=== PATIENT | male | born 1950 | race Caucasian/White ===

== ENCOUNTER → 2018-01-25 10:00 | Outpatient (CLI) | payer MEDICARE, MEDICAID, SELFPAY | PROVIDERS: PCP Family Medicine; Visit Provider Student in an Organized Health Care Education/Training Program | DX: I25.10 Atherosclerotic heart disease of native coronary artery without angina pectoris (principal); I50.9 Heart failure, unspecified; I11.0 Hypertensive heart disease with heart failure; Z95.818 Presence of other cardiac implants and grafts; I71.4 Abdominal aortic aneurysm, without rupture; I72.3 Aneurysm of iliac artery | CPT/HCPCS: 99214 ==

== ENCOUNTER 2022-09-23 11:21 | Outpatient (CLI) | payer MEDICARE, SELFPAY ==
--- NOTE | 2022-09-23 10:48 | DI.RAD_ITS ---
Exam(s) XR CHEST 2V PA LATERAL EXAM: XR CHEST 2V PA LATERAL CLINICAL HISTORY: COUGH R05.8 SEVERAL DAYS WORSE LAYING DOWN ? PNEUMONIA VS HEART FAILURE. TECHNIQUE: 2D digital imaging was performed. COMPARISON: CT CTA THORAX/ABDOMEN/PELVIS from 05/14/2017 FINDINGS: 2 views: Heart size is normal. The mediastinum is not widened. Bilateral hyperinflation. There is blunting of the right costophrenic angle indicating small right-s ided pleural. Mild increased markings in both lung bases. No airspace pulmonary edema. IMPRESSION: Mild increased markings both lung bases. Also small right pleural effusion. Wet read performed DATA REPOSITORY: RADIATION DOSE DELIVERED:
[2022-09-23 14:12] LABS: Source Nasal/Nares
[2022-09-23 14:15] LABS: Abs Immature Grans 0.04 10^3/uL (0.0-0.06); Absolute Basophil Count 0.08 10^3/uL (0.0-0.2); Absolute Eosinophil Count 0.17 10^3/uL (0.0-0.7); Absolute Lymphocyte Count 1.62 10^3/uL (1.2-3.4); Absolute Monocyte Count 0.66 10^3/uL (0.1-0.8); Basophils % 0.7; Eosinophils % 1.4; HCT 37.8 % (40.0-50.0); HGB 12.9 g/dL (13.5-17.5); Immature Grans % 0.3; Lymphocytes % 13.4; MCH 30.8 pg (27.0-33.0); MCHC 34.1 % (32.0-36.0); MCV 90 fL (80-95); MPV 10.8 fL (8.0-11.0); Monocytes % 5.5; Neutrophils % 78.7; Platelet Count 259 10^3/uL (130-400); RBC 4.19 10^6/uL (4.36-5.78); RDW 14.4 % (11.8-14.1); RDW-SD 47.8 fL; WBC 12.07 10^3/uL (4.4-10.8)
[2022-09-23 14:34] LABS: ALT 14 U/L (16-63); AST 11 U/L (15-37); Albumin 3.8 g/dL (3.4-5.0); Alkaline Phosphatase 111 U/L (46-116); BUN 27 mg/dL (7-18); Bilirubin, Total 0.6 mg/dL (0.2-1.0); CREATININE 1.6 mg/dL (0.70-1.30); Calcium 8.9 mg/dL (8.5-10.1); Chloride 101 mmol/L (98-107); Estimated GFR 46.06 (mL/min/1.73m2); Glucose 316 mg/dL (74-106); NT-proBNP 19382 pg/mL (<300); Potassium 3.8 mmol/L (3.5-5.1); Sodium 136 mmol/L (136-145); Total Protein 6.8 g/dL (6.4-8.2)
[2022-09-23 14:46] LABS: COVID-19 PCR Negative (Negative)
== END 2022-09-23 11:41 ==
LOC: DI 11:22
PROVIDERS: PCP Family Medicine; Visit Provider Physician Assistant Medical
DX: R05.8 Other specified cough (principal); J90 Pleural effusion, not elsewhere classified; J98.4 Other disorders of lung; I50.9 Heart failure, unspecified; Z20.822 Contact with and (suspected) exposure to COVID-19
CPT/HCPCS: 80053; 87635; 71046; 83880; 85025

== ENCOUNTER 2022-09-23 16:05 | Inpatient (IN) | payer MEDICARE, SELFPAY ==
[2022-09-23] VITALS (49 sets, daily range): BP systolic 137–192; BP diastolic 75–125; PULSE 81–96; RESP 12–28; TEMP 36.4–36.9; O2SAT 94–99
--- NOTE | 2022-09-23 16:15 | RT.EKG_ITS ---
APPROVED REPORT Exam: Resting ECG Reason for Exam: sob, cardiac hx Patient Location: E HR:93 bpm ECG Measurements Heart Rate 93 AXIS NC 141 P 41 QRSd 80 QRS 50 QT 375 T 37 QTc 466 Conclusion Sinus rhythm...normal P axis, V-rate 60- 99 Left atrial enlargement...P, P'>60mS, <-0.15mV V1 Anterior infarct, old...Q >40mS, abnormal ST-T, V2-V5. Sinus. Normal axis. LVH. No STEMI. I have reviewed and interpreted ECG and agree with software generated interpretation.
[2022-09-23 16:50] LABS: Abs Immature Grans 0.05 10^3/uL (0.0-0.06); Absolute Basophil Count 0.07 10^3/uL (0.0-0.2); Absolute Monocyte Count 0.75 10^3/uL (0.1-0.8); Basophils % 0.6; Eosinophils % 1.1; HCT 37.7 % (40.0-50.0); HGB 13.1 g/dL (13.5-17.5); Immature Grans % 0.4; Lymphocytes % 9.7; MCH 31.2 pg (27.0-33.0); MCHC 34.7 % (32.0-36.0); MCV 90 fL (80-95); MPV 10.5 fL (8.0-11.0); Monocytes % 6.1; Neutrophils % 82.1; Platelet Count 244 10^3/uL (130-400); RDW 14.4 % (11.8-14.1); RDW-SD 47.5 fL; WBC 12.35 10^3/uL (4.4-10.8)
[2022-09-23 16:51] LABS: Absolute Eosinophil Count 0.14 10^3/uL (0.0-0.7); Absolute Neutrophil Count 10.14 10^3/uL (1.2-6.7)
[2022-09-23 17:07] LABS: ALT 14 U/L (16-63); AST 11 U/L (15-37); Albumin 3.6 g/dL (3.4-5.0); Alkaline Phosphatase 109 U/L (46-116); Anion Gap 8.5 mmol/L (3-11); BUN 27 mg/dL (7-18); Bilirubin, Total 0.6 mg/dL (0.2-1.0); CO2 25.5 mmol/L (21.0-32.0); CREATININE 1.6 mg/dL (0.70-1.30); Calcium 8.9 mg/dL (8.5-10.1); Chloride 103 mmol/L (98-107); Estimated GFR 46.06 (mL/min/1.73m2); Glucose 315 mg/dL (74-106); Magnesium 1.9 mg/dL (1.8-2.4); Potassium 3.9 mmol/L (3.5-5.1); Sodium 137 mmol/L (136-145)
[2022-09-23 17:09] LABS: Troponin I 166 ng/L (<or=60)
[2022-09-23 17:12] LABS: NT-proBNP 22305 pg/mL (<300)
--- NOTE | 2022-09-23 17:12 | DI.RAD_ITS ---
Exam(s) XR CHEST 2V PA LATERAL EXAM: XR CHEST 2V PA LATERAL CLINICAL HISTORY: sob, r/o acute disease TECHNIQUE: 2D digital imaging was performed of the chest. Two images were obtained. PA and lateral views were obtained. COMPARISON: Comparison is made with prior examinations. FINDINGS: MEDIASTINUM: Normal. HEART: Normal. PULMONARY VASCULATURE: There is ectasia of the ascending thoracic aorta. There does appear to be mil d prominence of the pulmonary vasculature which may represent pulmonary edema. LUNGS: The lungs are hyperinflated consistent with underlying COPD. No focal consolidating infiltrat es are seen. PLEURAL SPACE: There is blunting of the costophrenic angles bilaterally again seen. This may represe nt small effusions versus scarring. No pneumothorax. BONE:Within normal limits for the patient's age. OTHER FINDINGS:Normal. IMPRESSION: 1. Prominence of the pulmonary vasculature which may represent pulmonary edema. 2. Small pleural effusions versus pleural scarring. 3. No focal consolidating infiltrates. DATA REPOSITORY: RADIATION DOSE DELIVERED:
--- NOTE | 2022-09-23 17:23 | DI.VRAD_ITS ---
PROCEDURE INFORMATION: Exam: XR Chest Exam date and time: 09/23/2022 5:11 PM Age: 72 years old Clinical indication: Other: SOB, R/O acute disease TECHNIQUE: Imaging protocol: Radiologic exam of the chest. Views: 2 views. COMPARISON: CR XR CHEST 2V PA LATERAL 09/23/2022 10:47 AM FINDINGS: Lungs: The lung volumes are increased. Since this morning's examination there is increase in the pulmonary vascularity consistent with mild pulmonary edema. No lobar consolidations. Pleural spaces: Tiny-small bilateral subpulmonic pleural effusions. Heart/Mediastinum: Heart is normal in size and configuration. Vasculature: The lateral image shows ectasia of the ascending aorta that was seen by CTA May 14, 2017 when it measured 4.1 cm in diameter. Bones/joints: Unremarkable. IMPRESSION: 1. Tiny-small bilateral pleural effusions with pulmonary edema. 2. Ectasia of the ascending aorta. Dictated and Authenticated by: Antonio Oconnor MD. Ordering:EDILBERTO Diez MD
--- NOTE | 2022-09-23 18:16 | ED.GENADUL_ITS ---
Discharge Plan Disposition Patient Disposition: Admit to [facility] Condition: Serious Discharge Details Chief Complaint: RespSymp Clinical Impression: Acute CHF, Hypertensive urgency, Elevated troponin, Noncompliance with medication regimen Primary Care Provider: Lavelle Webber ED Provider: Chary Valero Home Meds and New Rx's Prescriptions: No Action glipizide 5 mg tablet 5 mg PO DAILY omeprazole 20 mg capsule,delayed release(DR/EC) 20 mg PO DAILY Qty: 60 3RF nitroglycerin [Nitrostat] 0.4 MG tablet, sublingual 0.4 mg Sublingual PRN atorvastatin 80 MG tablet 80 mg PO DAILY Qty: 90 3RF metoprolol tartrate 50 MG tablet 50 mg PO BID Qty: 180 3RF aspirin 81 MG tablet,chewable 81 mg PO DAILY Qty: 90 3RF lisinopril 20 MG tablet 20 mg PO DAILY Qty: 90 3RF (DME) blood-glucose meter 1 EACH misc 1 ea Miscellaneous DAILY Qty: 1 0RF Rx Instructions: METER TYPE (whichever covered)_ DIAGNOSIS CODE E11.9 (DME) blood sugar diagnostic [Blood Glucose Test] 1 EACH strip 1 ea Miscellaneous DAILY Qty: 1 11RF Rx Instructions: Dx: E11.9 (DME) lancets 1 EACH misc 1 ea Miscellaneous DAILY Qty: 100 12RF Rx Instructions: FOR METER. NO INSULIN. DIAGNOSIS CODE E11.9 Medical Decision Making 72-year-old male with a history of coronary artery disease, triple bypass, coronary stent placement and diabetes who has not taken any of his medications for 6+ years with a complaint of progressive dyspnea on exertion and fatigue for the past few days presents after sent by [facility] when noted to have an elevated BNP of 19,000 and bilateral pleural effusions on chest x-ray as an outpatient today. Blood pressure on arrival 176/106. Patient appears chronically ill but in no acute respiratory distress. His oxygen saturations 98% on room air. He has diminished breath sounds throughout. Screening labs obtained on arrival and noted BNP of 22 305, increased from 19,000 today. Troponin 166. White blood cell count 12. Chest x-ray notes tiny bilateral pleural effusions with increase in vascularity consistent with mild pulmonary edema. Patient is not requiring any supplemental oxygen. BP now 187/113. Discussed with patient that he appears to be in acute CHF along with hypertensive urgency and recommend admission to the hospital for serial troponins, diuresis and blood pressure management. Patient is agreeable with plan. Case discussed with hospitalist who accepts patient for admission. Medical Records Medical records reviewed: Yes I reviewed the patient's medical records. Imaging Data Radiologic Study: Radiologist's impression: XR Chest Exam date and time: 09/23/2022 5:11 PM Age: 72 years old Clinical indication: Other: SOB, R/O acute disease TECHNIQUE: Imaging protocol: Radiologic exam of the chest. Views: 2 views. COMPARISON: CR XR CHEST 2V PA LATERAL 09/23/2022 10:47 AM FINDINGS: Lungs: The lung volumes are increased. Since this morning's examination there is increase in the pulmonary vascularity consistent with mild pulmonary edema. No lobar consolidations. Pleural spaces: Tiny-small bilateral subpulmonic pleural effusions. Heart/Mediastinum: Heart is normal in size and configuration. Vasculature: The lateral image shows ectasia of the ascending aorta that was seen by CTA May 14, 2017 when it measured 4.1 cm in diameter. Bones/joints: Unremarkable. IMPRESSION: 1. ? Tiny-small bilateral pleural effusions with pulmonary edema. 2. ? Ectasia of the ascending aorta. Lab Data Lab results reviewed: Yes I reviewed the patient's lab results. Labs: Laboratory Tests Range/Units 09/23/22 09/23/22 09/23/22 16:40 16:40 16:40 WBC (4.4-10.8) 10^3/uL 12.35 H RBC (4.36-5.78) 10^6/uL 4.20 L Hgb (13.5-17.5) g/dL 13.1 L Hct (40.0-50.0) % 37.7 L MCV (80-95) fL 90 MCH (27.0-33.0) pg 31.2 MCHC (32.0-36.0) % 34.7 RDW (11.8-14.1) % 14.4 H Plt Count (130-400) 10^3/uL 244 MPV (8.0-11.0) fL 10.5 Immature Gran % 0.4 Neutrophils % 82.1 Lymphocytes % 9.7 Monocytes % 6.1 Eosinophils % 1.1 Basophils % 0.6 Nucleated RBC % (0.0-0.3) % 0.0 Absolute Neutrophils (1.2-6.7) 10^3/uL 10.14 H Absolute Lymphocytes (1.2-3.4) 10^3/uL 1.20 Absolute Monocytes (0.1-0.8) 10^3/uL 0.75 Absolute Eosinophils (0.0-0.7) 10^3/uL 0.14 Absolute Basophils (0.0-0.2) 10^3/uL 0.07 Sodium (136-145) mmol/L 137 Potassium (3.5-5.1) mmol/L 3.9 Chloride (98-107) mmol/L 103 Carbon Dioxide (21.0-32.0) mmol/L 25.5 Anion Gap (3-11) mmol/L 8.5 BUN (7-18) mg/dL 27 H Creatinine (0.70-1.30) mg/dL 1.6 H Est GFR (CKD-EPI 2020) (mL/min/1.73m2) 46.06 Glucose (74-106) mg/dL 315 H Calcium (8.5-10.1) mg/dL 8.9 Magnesium (1.8-2.4) mg/dL 1.9 Total Bilirubin (0.2-1.0) mg/dL 0.6 AST (15-37) U/L 11 L ALT (16-63) U/L 14 L Alkaline Phosphatase (46-116) U/L 109 Troponin I (<or=60) ng/L 166 H* NT-Pro-B Natriuret Pep (<300) pg/mL 16235 H Total Protein (6.4-8.2) g/dL 7.0 Albumin (3.4-5.0) g/dL 3.6 ECG Data Attestation: I personally reviewed and interpreted this ECG (s) as follows: Interpretation: Rate of 93, sinus, normal axis, LVH, no STEMI. HPI General Mode of arrival: ambulatory . Date/Time Provider Initiated Documentation: 09/23/22 16:11 . Limitations to Documentation: no limitations . Information obtained by: patient . HPI Narrative: Patient is a 72 yo male with a history of coronary artery disease with triple bypass and coronary stent placement over 10 years ago, hypertension and diabetes who presents with a complaint of shortness of breath worse with activity over the past 3 days. He also admits to increasing productive cough. He states he stopped taking all of his medications over 6 years ago and has not seen a doctor since then. Son at bedside states that a retractor from surgery was left in hi s chest after his triple bypass and that made him mad so he states he decided to stop his medications. Patient was seen in [facility] care earlier today and had outpatient labs and x-ray which noted a BNP of 19,000 and a chest x-ray which noted bilateral pleural effusions and he was called at home and told to present here for evaluation. Patient denies any known fever, chest pain, abdominal pain. Related Data Home Medications Medication Instructions Recorded Confirmed nitroglycerin 0.4 mg sublingual 0.4 mg sublingual PRN 07/20/17 04/21/18 tablet (Nitrostat) aspirin 81 mg chewable tablet 81 mg PO DAILY #90 tab-caps 10/19/17 04/21/18 atorvastatin 80 mg tablet 80 mg PO DAILY #90 tab-caps 10/19/17 04/21/18 lisinopril 20 mg tablet 20 mg PO DAILY #90 tab-caps 10/19/17 04/21/18 metoprolol tartrate 50 mg tablet 50 mg PO BID #180 tab-caps 10/19/17 04/21/18 blood sugar diagnostic (Blood ##1 01/20/18 04/21/18 Glucose Test strips) blood-glucose meter #1 ea 01/20/18 04/21/18 lancets 28 gauge #100 ea 01/20/18 04/21/18 glipizide 5 mg tablet 5 mg PO DAILY 04/21/18 04/21/18 omeprazole 20 mg capsule,delayed 20 mg PO DAILY #60 caps 04/21/18 04/21/18 release Previous Rx's Medication Instructions Recorded aspirin 81 mg chewable tablet 81 mg PO DAILY #90 tab-caps 10/19/17 atorvastatin 80 mg tablet 80 mg PO DAILY #90 tab-caps 10/19/17 lisinopril 20 mg tablet 20 mg PO DAILY #90 tab-caps 10/19/17 metoprolol tartrate 50 mg tablet 50 mg PO BID #180 tab-caps 10/19/17 blood sugar diagnostic (Blood ##1 01/20/18 Glucose Test strips) blood-glucose meter #1 ea 08/03/18 lancets 28 gauge #100 ea 01/20/18 omeprazole 20 mg capsule,delayed 20 mg PO DAILY #60 caps 04/21/18 release Allergies Allergy/AdvReac Type Severity Reaction Status Date / Time No Known Allergies Allergy Verified 04/21/18 10:11 General Stated Complaint: RespSymp DENIS: 3 Review of Systems All systems reviewed & are unremarkable except as noted in HPI and below Constitutional Constitutional: Reports as per HPI, Denies chills, Reports fatigue, Denies fever(s) and Reports weakness Eyes Eyes: Denies blurry vision ENT Ears, Nose, Mouth, and Throat: Denies dizziness, Denies sore throat and Denies throat swelling Cardiovascular Cardiovascular: Denies chest pain and Reports dyspnea on exertion Respiratory Respiratory: Reports cough and Reports dyspnea on exertion Gastrointestinal Gastrointestinal: Denies abdominal pain, Denies diarrhea and Denies vomiting Genitourinary Genitourinary: Denies hematuria and Denies dysuria Musculoskeletal Musculoskeletal: Denies back pain and Denies numbness Integumentary/Breasts Skin/Breast: Denies lesions and Denies rash Neurologic Neurologic: Denies dizziness, Denies localized weakness, Denies numbness and Reports weakness Endocrine Endocrine: Reports fatigue Allergic/Immunologic Allergic/Immunologic: Denies throat swelling PFSH All Active Problems (Updated 09/23/22 @ 19:01 by Chary Valero DO) Acute CHF (Acute) Hypertensive urgency (Acute) Elevated troponin (Acute) Noncompliance with medication regimen (Acute) Diverticulosis of colon (Chronic) Abdominal pain, LLQ (Chronic) Epigastric abdominal pain of unknown etiology (Chronic) Medical History (Updated 09/23/22 @ 19:01 by Chary Valero DO) Coronary artery disease Diabetes Surgical History (Updated 09/23/22 @ 18:22 by Chary Valero DO) AAA repair (08/10/13) [facility] [place] Colonoscopy - MAC 11/13/13; LR F/U 7 YRS History of coronary artery stent placement S/P triple vessel bypass Social History Smoking/Tobacco Use Status: Former Tobacco Use Smoking risk assessment performed?: Yes Drug use: Never Do you feel safe in your relationship?: Yes Exam Const General: cooperative, no acute distress and ill appearing chronically Nutritional Appearance: thin Orientation: alert, awake and oriented x3 HENMT Head: normal to inspection Face and sinus: normal facial exam Mouth: moist mucous membranes Eyes General: appearance normal, both eyes and all related structures Pupils: PERRL EOM: EOM intact bilaterally Neck Neck: normal visual inspection and No submandibular swelling Lymphatic: no lymphadenopathy noted Chest Chest: normal inspection of the chest and no tenderness Resp Effort & Inspection: normal respiratory effort and able to speak in complete sentences Auscultation: diminished lung sounds bilaterally throughout Cardio Rate: regular rate Rhythm: regular rhythm GI Inspection: normal to inspection Palpation: soft, not firm, not rigid and nontender Auscultation: hypoactive bowel sounds Male General Exam: Yes normal external exam Back/Spine/Pelvis Thoracic/Lumbar Spine: thoracic and lumbar spine normal to inspection Pelvis: no pain with anterior-posterior compression Skin General skin exam: no rashes or lesions noted Neuro General: patient alert, patient awake and patient oriented x3 Cognition: normal cognition Speech: speech normal Motor: muscle tone normal throughout Sensory Exam: no sensory deficits noted Extrem General: normal to inspection, full ROM, capillary refill normal, no calf tenderness bilaterally and no edema Psych Appearance: grossly normal Mental Status: mental status grossly normal Speech and Movement: speech and movement normal Affect: normal affect Course Vital Signs Vital signs: Vital Signs Temperature 98.4 F 09/23/22 16:18 Pulse 96 H 09/23/22 16:18 Respiratory Rate 20 09/23/22 16:18 Blood Pressure 176/106 H 09/23/22 16:18 Pulse Oximetry 98 09/23/22 16:18 Temperature 98.4 F 09/23/22 16:18 Temperature Source Oral 09/23/22 16:18 Pulse 96 H 09/23/22 16:18 Respiratory Rate 20 09/23/22 16:18 Blood Pressure 176/106 H 09/23/22 16:18 Blood Pressure Position Sitting 09/23/22 16:18 Pulse Oximetry 98 09/23/22 16:18 Oxygen Delivery Method Room Air 09/23/22 16:18 Oxygen Flow Rate 0 09/23/22 16:18 Pain Level 0 09/23/22 16:18 Lab/Test Results Lab/Test Results: Laboratory Tests Range/Units 09/23/22 09/23/22 09/23/22 16:40 16:40 16:40 WBC (4.4-10.8) 10^3/uL 12.35 H RBC (4.36-5.78) 10^6/uL 4.20 L Hgb (13.5-17.5) g/dL 13.1 L Hct (40.0-50.0) % 37.7 L MCV (80-95) fL 90 MCH (27.0-33.0) pg 31.2 MCHC (32.0-36.0) % 34.7 RDW (11.8-14.1) % 14.4 H Plt Count (130-400) 10^3/uL 244 MPV (8.0-11.0) fL 10.5 Immature Gran % 0.4 Neutrophils % 82.1 Lymphocytes % 9.7 Monocytes % 6.1 Eosinophils % 1.1 Basophils % 0.6 Nucleated RBC % (0.0-0.3) % 0.0 Absolute Neutrophils (1.2-6.7) 10^3/uL 10.14 H Absolute Lymphocytes (1.2-3.4) 10^3/uL 1.20 Absolute Monocytes (0.1-0.8) 10^3/uL 0.75 Absolute Eosinophils (0.0-0.7) 10^3/uL 0.14 Absolute Basophils (0.0-0.2) 10^3/uL 0.07 Sodium (136-145) mmol/L 137 Potassium (3.5-5.1) mmol/L 3.9 Chloride (98-107) mmol/L 103 Carbon Dioxide (21.0-32.0) mmol/L 25.5 Anion Gap (3-11) mmol/L 8.5 BUN (7-18) mg/dL 27 H Creatinine (0.70-1.30) mg/dL 1.6 H Est GFR (CKD-EPI 2020) (mL/min/1.73m2) 46.06 Glucose (74-106) mg/dL 315 H Calcium (8.5-10.1) mg/dL 8.9 Magnesium (1.8-2.4) mg/dL 1.9 Total Bilirubin (0.2-1.0) mg/dL 0.6 AST (15-37) U/L 11 L ALT (16-63) U/L 14 L Alkaline Phosphatase (46-116) U/L 109 Troponin I (<or=60) ng/L 166 H* NT-Pro-B Natriuret Pep (<300) pg/mL 94161 H Total Protein (6.4-8.2) g/dL 7.0 Albumin (3.4-5.0) g/dL 3.6
[2022-09-23] MEDS: Furosemide 100 MG/10 ML VIAL 80 MG IVP (18:34)
[2022-09-23] MEDS: Metoprolol 5 MG/5 ML VIAL IVP (18:37)
[2022-09-23 19:16] LABS: Source Nasal/Nares
[2022-09-23 19:47] LABS: COVID-19 PCR Negative (Negative)
[2022-09-23 21:48] LABS: Troponin I 158 ng/L (<or=60)
[2022-09-23] MEDS: Enoxaparin 40 MG/0.4 ML SYR SC (22:10)
--- NOTE | 2022-09-23 22:46 | W.PM.HP.N ---
Date of service: 09/23/22 Time of Service: 22:46 Assessment and Plan Assessment and plan (1) Acute CHF: Status: Acute Assessment and plan: Exam and BNaP consistent with acute CHF, likely due to ischemic cardiomyopathy given his history. He is already responding to diuresis, will continue furosemide Order echo to assess LVEF and guide therapy (2) Hypertensive urgency: Status: Acute Assessment and plan: This is likely related to fluid overloaded status and him not taking his blood pressure medication. I will continue metoprolol IV overnight given elevated troponins, transition to oral tomorrow. CHF improving with metoprolol so I don't think it is making his CHF worse. Follow BPs with this and diuresis. Resume LESLIE inhibitor once we make sure creatinine is stable. (3) Elevated troponin: Status: Acute Assessment and plan: Elevated troponin but no chest pain or ischemic EKG changes. This is improving already with duresis and metoprolol. Not consistent with AC. (4) Type 2 diabetes mellitus without complications: Status: Suspected Assessment and plan: He has been off therapy, likely poorly controlled, has lost weight. Start with insulin, check A1c. He would benefit from metformin (if okay with GFR) and newer therapies given CAD and CHF (GLP-1 and SGLT2i). We need to know he can get these paid for as an outpatient, so holding off for now. (5) Coronary artery disease: Assessment and plan: Resume high intensity statin and ASA. (6) Smoker: Status: Acute Assessment and plan: Daily cigarillo smoker. He stopped with these symtoms but is contemplative about quitting for good. (7) Renal insufficiency: Status: Chronic Assessment and plan: Reviewing history it is unclear if this is purely chronic or acute on chronic. I think likely chronic progression of CKD off medication for HTN and DM. Follow. LESLIE-inh as above. (8) Anemia, mild: Status: Acute Assessment and plan: NO known blood loss. Possibly CKD related, normocytic. Consider iron/b12/folate (9) DVT prophylaxis: Status: Acute Assessment and plan: LMWH (10) Discharge planning issues: Status: Acute Assessment and plan: STable on the medical floor on telemetry given heart disease. He will need to re-establish with PCP upon discharge. History of Present Illness History of Present Illness Chief Complaint: short of breath Narrative: 72 year old male, daily cigar smoker, with a history of type 2 diabetes and coronary artery disease s/p CABG who has been off of his medications for years, presenting with 4 days of progressive shortness of breath that is worse on exertion. He first noted the dyspnea Tuesday when he woke up, 3 days prior to the day of admission. He did not have any chest pain and and can not think of any trigger for his symptoms. Since then he has dyspneic with any exertion like walking and he has had a hard time sleeping because of orthopnea. He hasn't had leg edema. He has had a cough productive of white frothy sputum. Since getting furosemide in the ED, he did urinate a lot and he is able to lay comfortably in bed at about 45%, which he couldn't do before. Review of Systems Constitutional Constitutional: Denies anorexia, Denies chills, Denies fever(s), Denies headache(s), Reports lethargy, Denies weakness and Reports weight loss Eyes Eyes: Denies change in vision and Denies irritation ENT Ears, Nose, Mouth, and Throat: Denies dizziness, Denies headache(s), Denies nasal congestion, Denies nasal discharge and Denies sore throat Cardiovascular Cardiovascular: Denies chest pain, Denies edema, Denies lightheadedness and Denies palpitations Respiratory Respiratory: Reports as per HPI and Denies wheezing Gastrointestinal Gastrointestinal: Denies abdominal pain, Denies constipation, Denies heartburn, Denies diarrhea, Denies nausea and Denies vomiting Genitourinary Genitourinary: Denies hematuria, Denies dysuria and Denies urinary incontinence Musculoskeletal Musculoskeletal: Reports muscle cramps (since being in hospital, right foot) Integumentary/Breasts Skin/Breast: Denies rash and Denies skin ulcer Comments: sore on right neck, has had it for years Neurologic Neurologic: Denies dizziness, Denies headache(s), Denies sensory deficit and Denies weakness Psychiatric Psychiatric: Denies mood swings and Denies panic attacks Endocrine Endocrine: Denies palpitations Hematologic/Lymphatic Hematologic/Lymphatic: Denies easy bleeding Allergic/Immunologic Allergic/Immunologic: Denies wheezing PFSH All Active Problems (Updated 09/23/22 @ 23:26 by Darrick Minor) Anemia, mild (Acute) Renal insufficiency (Chronic) Discharge planning issues (Acute) DVT prophylaxis (Acute) Smoker (Acute) Acute CHF (Acute) Hypertensive urgency (Acute) Elevated troponin (Acute) Noncompliance with medication regimen (Acute) Diverticulosis of colon (Chronic) Abdominal pain, LLQ (Chronic) Epigastric abdominal pain of unknown etiology (Chronic) Medical History Coronary artery disease Diabetes Surgical History AAA repair (08/10/13) [facility] [place] Colonoscopy - MAC 11/13/13; [facility] F/U 7 YRS History of coronary artery stent placement S/P triple vessel bypass Social History (Updated 09/23/22 @ 22:58 by Darrick Minor) Smoking/Tobacco Use Status: Former Tobacco Use Smoking risk assessment performed?: Yes Alcohol Intake: current Drug use: Never Do you feel safe in your relationship?: Yes Additional Social history: Lives along in [place]. 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 14 siblings. Meds Allergies and Home Medications Allergies Allergy/AdvReac Type Severity Reaction Status Date / Time No Known Allergies Allergy Verified 09/23/22 21:01 Home Medications Medication Instructions Recorded Confirmed Type nitroglycerin 0.4 mg sublingual 0.4 mg sublingual PRN 07/20/17 04/21/18 History tablet (Nitrostat) aspirin 81 mg chewable tablet 81 mg PO DAILY #90 tab-caps 10/19/17 04/21/18 Rx atorvastatin 80 mg tablet 80 mg PO DAILY #90 tab-caps 10/19/17 04/21/18 Rx lisinopril 20 mg tablet 20 mg PO DAILY #90 tab-caps 10/19/17 04/21/18 Rx metoprolol tartrate 50 mg tablet 50 mg PO BID #180 tab-caps 10/19/17 04/21/18 Rx blood sugar diagnostic (Blood ##1 01/20/18 04/21/18 Rx Glucose Test strips) blood-glucose meter #1 ea 01/20/18 04/21/18 Rx lancets 28 gauge #100 ea 01/20/18 04/21/18 Rx glipizide 5 mg tablet 5 mg PO DAILY 04/21/18 04/21/18 History omeprazole 20 mg capsule,delayed 20 mg PO DAILY #60 caps 04/21/18 04/21/18 Rx release Exam Narrative Exam Narrative: GEN: Alert and oriented, pleasant and cooperative, gives linear history. Thin. No acute distress at rest. HEENT: Head atraumatic. Conjunctiva clear, no icterus. PEERL, EOMI. no rhinorrhea. MMM, OP benign. Neck is supple with no masses or lymphadenopathy, trachea midline. JVP noted to 12cm H20 LUNGS: light rales 1/3 up lung field bilaterally, otherwise CTAB. speaks with full sentences at rest. CV: RRR with no murmurs, gallops, or rubs. ABD: +BS, soft, NT/ND EXT: no cyanosis, clubbing, or edema MSK: No joint redness or swelling NEURO: CN 2-12 grossly intact. Normal movement of 4 extremities. Normal speech and coordination SKIN: No rashes. 8mm excoriated round plaque with dry crusted blood right neck below ear PSYCH: normal mood and affect Results Imaging Chest x-ray: report reviewed and image reviewed (mild paul effusions, pulmonary edema) EKG: report reviewed and image reviewed (NSR, LVH, no STEMI) Labs 09/23/22 16:40 09/23/22 16:40 Labs: Laboratory Results - last 24 hr 09/23/22 09/23/22 09/23/22 16:40 16:40 16:40 WBC 12.35 H RBC 4.20 L Hgb 13.1 L Hct 37.7 L MCV 90 MCH 31.2 MCHC 34.7 RDW 14.4 H Plt Count 244 MPV 10.5 Immature Gran % 0.4 Neutrophils % 82.1 Lymphocytes % 9.7 Monocytes % 6.1 Eosinophils % 1.1 Basophils % 0.6 Nucleated RBC % 0.0 Absolute Neutrophils 10.14 H Absolute Lymphocytes 1.20 Absolute Monocytes 0.75 Absolute Eosinophils 0.14 Absolute Basophils 0.07 Sodium 137 Potassium 3.9 Chloride 103 Carbon Dioxide 25.5 Anion Gap 8.5 BUN 27 H Creatinine 1.6 H Est GFR (CKD-EPI 2020) 46.06 Glucose 315 H Calcium 8.9 Magnesium 1.9 Total Bilirubin 0.6 AST 11 L ALT 14 L Alkaline Phosphatase 109 Troponin I 166 H* NT-Pro-B Natriuret Pep 94927 H Total Protein 7.0 Albumin 3.6 COVID-19 Source SARS-CoV-2 (PCR) 09/23/22 09/23/22 19:15 21:14 WBC RBC Hgb Hct MCV MCH MCHC RDW Plt Count MPV Immature Gran % Neutrophils % Lymphocytes % Monocytes % Eosinophils % Basophils % Nucleated RBC % Absolute Neutrophils Absolute Lymphocytes Absolute Monocytes Absolute Eosinophils Absolute Basophils Sodium Potassium Chloride Carbon Dioxide Anion Gap BUN Creatinine Est GFR (CKD-EPI 2020) Glucose Calcium Magnesium Total Bilirubin AST ALT Alkaline Phosphatase Troponin I 158 H* NT-Pro-B Natriuret Pep Total Protein Albumin COVID-19 Source Nasal/Nares SARS-CoV-2 (PCR) Negative Last Vital Signs Temp 36.4 C L 09/23/22 21:22 Pulse 85 09/23/22 21:22 Resp 15 09/23/22 21:22 BP 183/100 H 09/23/22 21:22 Pulse Ox 97 09/23/22 21:22 Time Spent Time spent with Patient: 55-74 minutes Time was spent: preparing to see the patient(eg.review tests), obtaining and/or reviewing separately otained hiistory, ordering medications,tests, procedures, referring, communicating with other health laboratory animal caretaker, indepentently interpreting results and counseling the patient
[2022-09-23] MEDS: Insulin Glargine 300 UNITS/3 ML PEN 10 UNITS SC (23:04)
[2022-09-23 23:35] LABS: Troponin I 147 ng/L (<or=60)
[2022-09-24] VITALS (17 sets, daily range): BP systolic 124–190; BP diastolic 81–105; PULSE 65–94; RESP 14–20; TEMP 36–36.6; O2SAT 94–99
[2022-09-24] MEDS: Metoprolol 5 MG/5 ML VIAL IVP ×2 (00:43→05:39)
[2022-09-24] MEDS: Normal Saline Flush 10 ML SYR IVP ×4 (00:45→16:07)
[2022-09-24] MEDS: Acetaminophen 325 MG TAB PO (02:19)
[2022-09-24] MEDS: Potassium Chloride 20 MEQ TABCR PO (02:31)
[2022-09-24 04:49] LABS: BUN 28 mg/dL (7-18); CREATININE 1.6 mg/dL (0.70-1.30); Calcium 9.4 mg/dL (8.5-10.1); Chloride 102 mmol/L (98-107); Estimated GFR 46.06 (mL/min/1.73m2); Glucose 258 mg/dL (74-106); Potassium 3.5 mmol/L (3.5-5.1); Sodium 138 mmol/L (136-145)
[2022-09-24 05:01] LABS: Hemoglobin A1C 7.4 % (<5.7)
[2022-09-24 05:08] LABS: Troponin I 153 ng/L (<or=60)
[2022-09-24] MEDS: Metoprolol 25 MG TAB PO ×3 (07:51→20:02)
[2022-09-24] MEDS: Aspirin 81 MG CHEW PO (07:52)
[2022-09-24] MEDS: Insulin Aspart 300 UNITS/3 ML PEN SC ×3 (07:52→17:13)
[2022-09-24] MEDS: Atorvastatin 40 MG TAB 80 MG PO (07:52)
[2022-09-24] MEDS: Furosemide 100 MG/10 ML VIAL 40 MG IVP (07:52)
--- NOTE | 2022-09-24 11:10 | INITIAL_ITS ---
- If Service Date Differs Date of service: 09/24/22 Time of Service: 11:10 Care Management Initial Assess REASON FOR HOSPITALIZATION:: Acute CHF, Hypertensive urgency, elevated troponin PAST MEDICAL HISTORY/PAST SURGICAL HISTORY:: Medical History . Coronary artery disease. Diabetes. Surgical History . [place]13[place] [facility] [place] - MAC. 11/13/13; [facility] F/U 7 YRS. History of coronary artery stent placement. S/P triple vessel bypass PREVIOUS FUNCTIONAL STATUS/SOCIAL/FAMILY SUPPORTS:: Per provider assumed poor medication compliance (DM,BP) creating increased medical concerns, weight loss, CAD and CHF CURRENT FUNCTIONAL STATUS:: Up independently. Following labs, adjusting medications. Has patient been provided with info about the portal/API?: Yes Did the patient sign up for the portal?: No CODE STATUS:: Full Code INSURANCE COVERAGE / FINANCIAL ISSUES:: Medicare A&B CURRENT HOME/COMMUNITY SERVICES/EQUIPMENT:: None currently. PRIMARY CARE PHYSICIAN:: Lavelle Webber-He will need to re-establish with PCP upon discharge POTENTIAL DISCHARGE NEEDS:: Follow up appointments. PATIENT/FAMILY EDUCATION NEEDS:: Review discharge instructions, discuss [employer] Me [employer]. Offer pill box for medication organization. ANTICIPATED BARRIERS TO DISCHARGE:: None identified. TRANSPORTATION:: Via private vehicle with a friend/family or via RCT. PLAN:: Dustin will return home when ready per MD. He will follow up with his PCP and plan of care as prescribed and transport via private vehicle. CM continues to follow.
[2022-09-24] MEDS: Perflutren Lipid Microspheres 1.5 ML VIAL IVP (12:12)
[2022-09-24] MEDS: Lisinopril 10 MG TAB PO (12:15)
[2022-09-24] MEDS: Empaglifozin 10 MG TAB PO (12:15)
--- NOTE | 2022-09-24 14:47 | CHAPLAIN ---
Dustin was resting in bed when I visited. I explained my role and offered support. He was trying to nap, so I didn't stay long.
--- NOTE | 2022-09-24 15:40 | PGE_ITS ---
Date of Service Date of service: 09/24/22 Time of Service: 15:41 Assessment and Plan Assessment and plan (1) Acute CHF: Status: Acute Assessment and plan: ischemic CM; diuresis, begin GDT w/ lisinopril; add Jardiance, low dose beta ivonne, add spironolactone if renal fxn stable. once stable then will need stress MPI (2) Hypertensive urgency: Status: Acute Assessment and plan: This is likely related to fluid overloaded status and him not taking his blood pressure medication. I will continue metoprolol IV overnight given elevated troponins, transition to oral tomorrow. CHF improving with metoprolol so I don't think it is making his CHF worse. Follow BPs with this and diuresis. Resume LESLIE inhibitor once we make sure creatinine is stable. (3) Elevated troponin: Status: Acute Assessment and plan: elevated troponin that are plateuing. Not having ischemic pain but his MARIANO may represent anginal equivalent. Needs stress MPI as an outpatient. (4) Type 2 diabetes mellitus without complications: Status: Suspected Assessment and plan: He has been off therapy, likely poorly controlled, has lost weight. Start with insulin, check A1c. He would benefit from metformin (if okay with GFR) and newer therapies given CAD and CHF (GLP-1 and SGLT2i). (5) Coronary artery disease: Assessment and plan: Resume high intensity statin and ASA. (6) Smoker: Status: Acute Assessment and plan: Daily cigarillo smoker. He stopped with these symtoms but is contemplative abo ut quitting for good. (7) Renal insufficiency: Status: Chronic Assessment and plan: Reviewing history it is unclear if this is purely chronic or acute on chronic. I think likely chronic progression of CKD off medication for HTN and DM. Follow. LESLIE-inh as above. (8) Anemia, mild: Status: Acute Assessment and plan: NO known blood loss. Possibly CKD related, normocytic. Consider iron/b12/folate (9) DVT prophylaxis: Status: Acute Assessment and plan: LMWH (10) Discharge planning issues: Status: Acute Assessment and plan: STable on the medical floor on telemetry given heart disease. He will need to re-establish with PCP upon discharge. Subjective Subjective Interval history since last seen: 72 yr old male w/ hx of CAD, s/p CABG over 10 yrs ago and HTN, who presented w/ acute dyspnea and hypoxemia and was found to be very hypertensive and in acute CHF. Echo demonstrates LVEF 25%. Patient was started on iv lasix and was started on iv metoprolol. I have switched him to oral metoprolol and started him on lisinopril (despite his creatinine of 1.6. He says that his acute dyspnea began about 4 days ago. Not associated w/ any CP. Troponin I were elevated at 166 but have been coming down to 153. EKG demonstrated NSR w/ old anterior infarct. Exam Narrative Exam Narrative: Thin elderly white male, lying supine, not wearing oxygen. alert and oriented Lungs: bibasilar rales; anterior lungs are clear Heart: RRR, S3 gallop Abdomen: nondistended, mild epigastric tenderness; questionable prominent abdominal aorta; no bruits Legs/feet: no edema or cyanosis. Objective Last Vital Signs Temp 36.4 C L 09/24/22 15:22 Pulse 65 09/24/22 15:22 Resp 18 09/24/22 15:22 BP 151/93 H 09/24/22 15:22 Pulse Ox 94 09/24/22 15:22 Laboratory Results - last 24 hr 09/23/22 09/23/22 09/23/22 16:40 16:40 16:40 WBC 12.35 H RBC 4.20 L Hgb 13.1 L Hct 37.7 L MCV 90 MCH 31.2 MCHC 34.7 RDW 14.4 H Plt Count 244 MPV 10.5 Immature Gran % 0.4 Neutrophils % 82.1 Lymphocytes % 9.7 Monocytes % 6.1 Eosinophils % 1.1 Basophils % 0.6 Nucleated RBC % 0.0 Absolute Neutrophils 10.14 H Absolute Lymphocytes 1.20 Absolute Monocytes 0.75 Absolute Eosinophils 0.14 Absolute Basophils 0.07 Sodium 137 Potassium 3.9 Chloride 103 Carbon Dioxide 25.5 Anion Gap 8.5 BUN 27 H Creatinine 1.6 H Est GFR (CKD-EPI 2020) 46.06 Glucose 315 H Hemoglobin A1c Calcium 8.9 Magnesium 1.9 Total Bilirubin 0.6 AST 11 L ALT 14 L Alkaline Phosphatase 109 Troponin I 166 H* NT-Pro-B Natriuret Pep 17812 H Total Protein 7.0 Albumin 3.6 COVID-19 Source SARS-CoV-2 (PCR) 09/23/22 09/23/22 09/23/22 19:15 21:14 23:08 WBC RBC Hgb Hct MCV MCH MCHC RDW Plt Count MPV Immature Gran % Neutrophils % Lymphocytes % Monocytes % Eosinophils % Basophils % Nucleated RBC % Absolute Neutrophils Absolute Lymphocytes Absolute Monocytes Absolute Eosinophils Absolute Basophils Sodium Potassium Chloride Carbon Dioxide Anion Gap BUN Creatinine Est GFR (CKD-EPI 2020) Glucose Hemoglobin A1c Calcium Magnesium Total Bilirubin AST ALT Alkaline Phosphatase Troponin I 158 H* 147 H* NT-Pro-B Natriuret Pep Total Protein Albumin COVID-19 Source Nasal/Nares SARS-CoV-2 (PCR) Negative 09/24/22 09/24/22 09/24/22 04:00 04:00 04:00 WBC RBC Hgb Hct MCV MCH MCHC RDW Plt Count MPV Immature Gran % Neutrophils % Lymphocytes % Monocytes % Eosinophils % Basophils % Nucleated RBC % Absolute Neutrophils Absolute Lymphocytes Absolute Monocytes Absolute Eosinophils Absolute Basophils Sodium 138 Potassium 3.5 Chloride 102 Carbon Dioxide 25.0 Anion Gap 11.0 BUN 28 H Creatinine 1.6 H Est GFR (CKD-EPI 2020) 46.06 Glucose 258 H Hemoglobin A1c 7.4 H Calcium 9.4 Magnesium Total Bilirubin AST ALT Alkaline Phosphatase Troponin I 153 H* NT-Pro-B Natriuret Pep Total Protein Albumin COVID-19 Source SARS-CoV-2 (PCR) Time Spent with Patient Time Spent with Patient: 25-34 minutes Time was spent: preparing to see the patient(eg.review tests), ordering medications,tests, procedures, referring, communicating with other health progressive care unit registered nurse (Dr. Minor), indepentently interpreting results, counseling the patient and care coordination
[2022-09-24] MEDS: Furosemide 40 MG/4 ML VIAL IVP (16:06)
[2022-09-24] MEDS: Potassium Chloride 10 MEQ CAPCR 20 MEQ PO ×2 (16:06→20:01)
[2022-09-24] MEDS: Enoxaparin 40 MG/0.4 ML SYR SC (21:21)
[2022-09-24] MEDS: Insulin Glargine 300 UNITS/3 ML PEN 10 UNITS SC (21:21)
[2022-09-25] VITALS (9 sets, daily range): BP systolic 119–143; BP diastolic 77–91; PULSE 64–81; RESP 14–17; TEMP 35.9–36.4; O2SAT 96–98
[2022-09-25] MEDS: Metoprolol 25 MG TAB PO (01:44)
[2022-09-25 06:27] LABS: Anion Gap 11.8 mmol/L (3-11); BUN 47 mg/dL (7-18); CO2 25.2 mmol/L (21.0-32.0); CREATININE 2.1 mg/dL (0.70-1.30); Calcium 9.3 mg/dL (8.5-10.1); Chloride 103 mmol/L (98-107); Estimated GFR 33.24 (mL/min/1.73m2); Glucose 123 mg/dL (74-106); Sodium 140 mmol/L (136-145)
[2022-09-25 06:54] LABS: Troponin I 101 ng/L (<or=60)
[2022-09-25] MEDS: Atorvastatin 40 MG TAB 80 MG PO (08:33)
[2022-09-25] MEDS: Aspirin 81 MG CHEW PO (08:33)
[2022-09-25] MEDS: Empaglifozin 10 MG TAB PO (08:33)
[2022-09-25] MEDS: Potassium Chloride 10 MEQ CAPCR 20 MEQ PO ×3 (08:33→20:16)
[2022-09-25] MEDS: Metoprolol 12.5 MG TAB PO ×3 (11:58→23:24)
--- NOTE | 2022-09-25 15:55 | W.PM.PROGNOT ---
Date of Service Date of service: 09/25/22 Time of Service: 15:55 Assessment and Plan Assessment and plan (1) Acute CHF: Status: Acute Assessment and plan: ischemic CM; diuresis, begin GDT w/ metoprolol, lisinopril was added but his creatinine janie to 2.1 from 1.6 and BUN janie to 47 from 28. Lisinopril has been held and diuretics on hold for now. Jardianc added. recheck BMP in the morning. He will go home on lower dose of diuretics. (2) Hypertensive urgency: Status: Acute Assessment and plan: BP markedly improved. metoprolol dose has been adjusted, lisinopril stopped pending improvement in renal fxn. diuretic held. (3) Elevated troponin: Status: Acute Assessment and plan: elevated troponin that are plateuing. Not having ischemic pain but his MARIANO may represent anginal equivalent. Needs stress MPI as an outpatient. (4) Type 2 diabetes mellitus without complications: Status: Suspected Assessment and plan: He has been off therapy, likely poorly controlled, has lost weight. Start with insulin, check A1c. He would benefit from metformin (if okay with GFR) and newer therapies given CAD and CHF (GLP-1 and SGLT2i). Jardianc has been added. Will check his Rx coverage. Hopefully he can go home on this as Empaglaflozin and Canagliflozin have been shown to reduce the progressin of CKD as well as CHF (5) Coronary artery disease: Assessment and plan: Resume high intensity statin and ASA. (6) Smoker: Status: Acute Assessment and plan: Daily cigarillo smoker. He stopped with these symtoms but is contemplative about quitting for good. (7) Renal insufficiency: Status: Chronic Assessment and plan: Reviewing history it is unclear if this is purely chronic or acute on chronic. I think likely chronic progression of CKD off medication for HTN and DM. Follow. Begin Jardiance as above. (8) Anemia, mild: Status: Acute Assessment and plan: NO known blood loss. Possibly CKD related, normocytic. Consider iron/b12/folate (9) DVT prophylaxis: Status: Acute Assessment and plan: LMWH (10) Discharge planning issues: Status: Acute Assessment and plan: STable on the medical floor on telemetry given heart disease. He will need to re-establish with PCP as well as local cardiology upon discharge. Subjective Subjective Interval history since last seen: Patient reports that he is feeling better. No dyspnea or CP. I met w/ his son who was visiting his father and his son shed some light on his father's lack of follow up w/ physcians. Apparently after the patient's CABG about 10 yrs ago, the patient suffered complications from a surgical mistake in which some retractor or other surgical device was left inside his chest and it was not discovered or removed for about 4 months and the patient had suffered w/ postoperative chest pain which was ignored and the mistake was not recognized until xray confirmation 4 months later. This led to the patient no longer having confidence in the medical profession. The son emphasized to the father that he will now have to learn to regain trust in physcians so that his father can be properly taken care of. I went over the patient's problems w/ the son and showed him the chart to discuss his father's renal insufficiency, severe cardiomyopathy and his abnormal troponin levels. I told him that I am trying to get him on goal directed therapy for his CHF and that he will need follow up w/ a local advertising account representative and a follow stress test to rule out ischemic heart disease. Exam Narrative Exam Narrative: Alert and oriented, lying in bed, not dyspneic, able to talk in complete paragraphs Neck: no JVD Lungs: clear Heart: RRR w/ S3 gallop Abdomen: flat, soft, nontender Extremities: no edema or cyanosis Objective Last Vital Signs Temp 36.4 C L 09/25/22 11:24 Pulse 71 09/25/22 11:24 Resp 16 09/25/22 11:24 BP 138/81 09/25/22 11:24 Pulse Ox 96 09/25/22 11:24 Laboratory Results - last 24 hr 09/25/22 09/25/22 05:50 05:50 Sodium 140 Potassium 4.0 Chloride 103 Carbon Dioxide 25.2 Anion Gap 11.8 H BUN 47 H Creatinine 2.1 H Est GFR (CKD-EPI 2020) 33.24 Glucose 123 H Calcium 9.3 Troponin I 101 H* Time Spent with Patient Time Spent with Patient: 25-34 minutes (30) Time was spent: preparing to see the patient(eg.review tests), ordering medications,tests, procedures, indepentently interpreting results, counseling the patient (and his son) and care coordination
[2022-09-25] MEDS: Insulin Aspart 300 UNITS/3 ML PEN SC (17:16)
[2022-09-25] MEDS: Insulin Glargine 300 UNITS/3 ML PEN 10 UNITS SC (21:24)
[2022-09-25] MEDS: Enoxaparin 30 MG/0.3 ML SYR SC (21:24)
[2022-09-26 02:30] VITALS: BP 128/88; PULSE 68; RESP 16; TEMP 36.4; O2SAT 99
[2022-09-26] MEDS: Metoprolol 12.5 MG TAB PO ×2 (05:43→12:51)
[2022-09-26 06:51] LABS: Platelet Count 280 10^3/uL (130-400)
[2022-09-26 07:00] VITALS: PULSE 70
[2022-09-26 07:07] LABS: Anion Gap 10.2 mmol/L (3-11); BUN 59 mg/dL (7-18); CO2 23.8 mmol/L (21.0-32.0); Calcium 9.2 mg/dL (8.5-10.1); Chloride 105 mmol/L (98-107); Estimated GFR 35.24 (mL/min/1.73m2); Glucose 92 mg/dL (74-106); Potassium 4.5 mmol/L (3.5-5.1); Sodium 139 mmol/L (136-145)
[2022-09-26 07:53] VITALS: BP 125/80; PULSE 68; RESP 16; TEMP 36; O2SAT 96
[2022-09-26 08:00] VITALS: PULSE 73; O2SAT 97
--- NOTE | 2022-09-26 08:21 | PDOC.CMDIS ---
- If Service Date Differs Date of service: 09/26/22 Time of Service: 08:21 LACE Index Scoring Tool - Questions: Length of Stay (in days): 3 Acuity (Admit via E.D.?): Yes Comorbidities: Diabetes w/o Complication E.D. Visits: 1 - Answers: Total Score: 8 Risk of Readmission: Low Risk Care Management Discharge Reason for Hospitalization: Acute CHF, Hypertensive urgency, elevated troponin Discharge Plan: Dustin is discharge home via private vehicle with friend. No [facility] services are ordered. He will follow up with community providers and discharge plan of care as prescribed. Patient/Family Education Needs: Review discharge instructions, medications, limitations and plan to follow up with PCP and Cardiology.
[2022-09-26] MEDS: Aspirin 81 MG CHEW PO (09:47)
[2022-09-26] MEDS: Potassium Chloride 10 MEQ CAPCR 20 MEQ PO ×2 (09:47→12:54)
[2022-09-26] MEDS: Atorvastatin 40 MG TAB 80 MG PO (09:48)
[2022-09-26] MEDS: Empaglifozin 10 MG TAB PO (09:48)
[2022-09-26 11:40] VITALS: BP 132/81; PULSE 68; RESP 16; TEMP 36.1; O2SAT 100
[2022-09-26] MEDS: Insulin Aspart 300 UNITS/3 ML PEN SC (12:52)
--- NOTE | 2022-09-26 14:19 | W.PM.DS.N ---
Date of service: 09/26/22 Time of Service: 14:19 DS: Diagnosis Discharge Diagnosis (1) Acute CHF: Status: Acute (2) Hypertensive urgency: Status: Acute (3) Elevated troponin: Status: Acute (4) Type 2 diabetes mellitus without complications: Status: Suspected (5) Coronary artery disease: (6) Smoker: Status: Acute (7) Renal insufficiency: Status: Chronic (8) Anemia, mild: Status: Acute (9) DVT prophylaxis: Status: Acute (10) Discharge planning issues: Status: Acute Discharge Plan Disposition Patient Disposition: Home Condition: Improving Discharge Details Reason For Visit: Acute CHF,Hypertensive Urgency,Elevated Troponin Admit Date/Time: 09/23/22 19:01 Admit Provider: Darrick Minor Attending Provider: Darrick Minor [facility] Hospital Course: 72 year old male, daily cigar smoker, with a history of type 2 diabetes and coronary artery disease s/p CABG who has been off of his medications for years, presenting with 4 days of progressive shortness of breath that is worse on exertion.? He first noted the dyspnea Tuesday when he woke up, 3 days prior to the day of admission.? He did not have any chest pain and and can not think of any trigger for his symptoms.? Since then he has dyspneic with any exertion like walking and he has had a hard time sleeping because of orthopnea.? He hasn't had leg edema.? He has had a cough productive of white frothy sputum. Since getting furosemide in the ED, he did urinate a lot and he is able to lay comfortably in bed at about 45%, which he couldn't do before Patient was treated with IV Lasix 40 mg twice a day for the first day and then switch over to oral Lasix and Jardiance was added. Patient was initially treated w/ iv lopressor then converted to lopressor before being discharged on Toprol XL. His bp improved remarkably. He diuresed well to the point that he was no longer having dyspnea w/ ADL's. However he did have worsening azotemia w/ his admission BUN and creatinine rising from 27 and 1.6 to 47 and 2.1. Lisinopril had been started but was discontinued, and further diuretics were witheld as he was deemed to be euvolemic. He was watched overnight from 09/25 to 09/26 to be sure his azotemia did not worsen. It did not. His discharge creatinine was 2.0. He was discharged w/ an Rx for torsemide 10 mg to be used in the event that he shows sudden increased wt gain of over 3 lbs per week or increasing edema or dyspnea. He is to have follow up BMP next week. Patient was started on Jardiance for both his DM and his CHF and CKD. With regard to his CAD, he did not exhibit any chest pain or pressure during his hospitalization. His troponin I level was elevated at 166 on admission and this was the peak. It declined to 101 at which point no further troponins were measured. His EKG demonstrated NSR w/ evidence of prior anterior NJ w/ QS pattern across the anterior precordial leads. Echocardiogram demonstrated severe global hypokinesis w/ LVEF 25% w/ regional wall motion abnormalities, and moderate MR and moderate TR. The patient was put on aspirin 81 mg daily and high dose atorvastatin 80 mg daily. A lipid panel was not obtained but has been ordered along w/ follow up BMP next week. Patient should have a follow up stress MPI to assess for residual ischemic burden. With respect to his DM, he was treated w/ basal/bolus insulin lantus/novolog, however patient will be sent home on Victoza and Jardiance. He already has a glucometer but he has not been using it. He is advised to monitor his glucose twice a day. Patient will be referred to Dr. Phillips in cardiology clinic and he should see his new PCP in one week. Home Meds and New Rx's Prescriptions: New aspirin [Children's Aspirin] 81 mg Tablet,Chewable 81 mg PO DAILY Qty: 90 0RF atorvastatin 40 mg Tablet 80 mg PO DAILY Qty: 30 0RF Jardiance 10 mg Tablet 10 mg PO QAM Qty: 30 0RF metoprolol succinate [Toprol XL] 50 mg tablet extended release 24 hr 50 mg PO DAILY Qty: 30 0RF Victoza 2-Niranjan 0.6 mg/0.1 mL (18 mg/3 mL) pen injector 0.6 mg subcut DAILY Qty: 6 0RF torsemide 10 mg tablet See Rx Instructions .ROUTE .COMPLEX Qty: 30 0RF Rx Instructions: 10 mg orally one daily as needed for wt gain over 3 lbs in one week if associate w/ edema of feet or shortness of breath Discharge Instructions Instructions: Metoprolol (By mouth), Atorvastatin (By mouth), Torsemide (By mouth), Liraglutide (By injection), Empagliflozin (By mouth), Heart Failure (DC), Low-Sodium Diet (DC) Additional Instructions: You were admitted to the hospital due to severly elevated blood pressure associated w/ acute congestive heart failure. you recieved intravenous diuretics which helped take fluid off your lungs improving your breathin. You were started on blood pressure medicine that will help w/ your heart failure including metoprolol. We tried you on lisinopril but your kidney impairment prevented us from continuing this. You have severe heart faiure w/ a left ventricular ejection fraction of 25% and you have moderate kidney impairment. Your diabetes is poorly controlled as we checked your terminal operations manager glucose (blood sugar) control which was an hemoglobin A1C of 7.4% which correlates to an average glucose of 166. You need follow up w/ a primary care provider, rn diabetes educator and a air conditioning equipment mechanic. These people can help you with controlling your diabetes, heart failure and hypertension and thereby hopefully slow down the progression of your chronic kidney disease and prevent rehospitalizations for aggravation of your heart failure. There are other medicines that may be tried for control of your diabetes and heart failure depending on your costs and willingness to take medicines. All medicines have potential side effects and indications and contraindications and you should discuss each medicine w/ your providers. Stand Alone Forms: Nursing Discharge Form Referrals: Shelia Phillips MD [ [facility] STAFF PHYSICIAN] - (Call [phone] Tuesday for an Appoointment with Dr Phillips ) Elida Nicole [ CONSULTING PHYSICIAN] - (Call [phone] Tuesday to make an appointment COMMUNICATIONS ATTENDANT Corey will be your new PCP as she was oncall when you came in ) Activity:: Activity as Tolerated Equipment/Supplies:: No Equipment Needed Diet:: Carb Counting Discharge Orders Discharge Orders: Discharge Order (Routine); Ordered 09/26/22 Ordered By: Oscar Meyer Ambulatory Orders: Basic Metabolic Panel (Routine) Timeframe: 1 Week Facility: [facility] - Location: Laboratory Outpatient - [facility] Ordered By: Oscar Villaseñor Lipid 2 (Routine) Timeframe: 1 Week Facility: [facility] - Location: Laboratory Outpatient - [facility] Ordered By: Oscar MATSON MPI rest & stress grp (Routine) Timeframe: 1 Week Facility: [facility] - Location: DIAGNOSTIC IMAGING DEPT Ordered By: Oscar Villaseñor Discharge Data Discharge Date/Time-TO BE ENTERED AT DEPARTURE: 09/26/22 15:16 DS: Summary Time Spent with Patient providing and/or coordinating discharge services: Greater than 30 minutes Status at Discharge Functional status at discharge: independent ambulation Overall status at discharge: patient is back to baseline Mental Status: mental status grossly normal Speech and Movement: speech and movement normal Mood: congruent mood Affect: normal affect Exam Narrative Exam Narrative: Alert and oriented, lying in bed, not dyspneic, able to talk in complete paragraphs Neck: no JVD Lungs: clear Heart: RRR w/ S3 gallop Abdomen: flat, soft, nontender Extremities: no edema or cyanosis Psych Mental Status: mental status grossly normal Speech and Movement: speech and movement normal Mood: congruent mood Affect: normal affect DS: Data Vitals/I&O Vitals and I&O: Vital Signs Temperature 36.1 C L 09/26/22 11:40 Temperature Source Tympanic 09/26/22 11:40 Pulse 68 09/26/22 11:40 Pulse Rhythm Regular 09/26/22 08:00 Pulse 88 09/23/22 19:45 Respiratory Rate 16 09/26/22 11:40 Respiratory Effort Normal, Non-Labored 09/26/22 08:00 Respiratory Depth Normal 09/26/22 08:00 Respiratory Pattern Normal 09/26/22 08:00 Blood Pressure 132/81 09/26/22 11:40 Blood Pressure Mean 119 09/23/22 21:00 Blood Pressure Position Sitting 09/23/22 16:18 Pulse Oximetry 100 09/26/22 11:40 Oxygen Delivery Method Room Air 09/26/22 11:40 Oxygen Flow Rate 0 09/26/22 11:40 Pain Level 0 09/26/22 07:53 Comment RN Notified 09/24/22 03:20 Intake & Output 09/25/22 09/26/22 09/26/22 23:59 11:59 23:59 Intake Total Balance Intake: IV Other: Urine Color Yellow Urine Appearance Clear Clear Voiding Methods Toilet Data Completed and Pending Labs on day of discharge: Labs from last 24 hours 09/26/22 09/26/22 06:25 06:25 Plt Count 280 Sodium 139 Potassium 4.5 Chloride 105 Carbon Dioxide 23.8 Anion Gap 10.2 BUN 59 H Creatinine 2.0 H Est GFR (CKD-EPI 2020) 35.24 Glucose 92 Calcium 9.2 PFSH All Active Problems (Updated 09/26/22 @ 14:07 by Oscar Villaseñor MD) Medication monitoring encounter (Acute) Anemia, mild (Acute) Renal insufficiency (Chronic) Discharge planning issues (Acute) DVT prophylaxis (Acute) Smoker (Acute) Acute CHF (Acute) Hypertensive urgency (Acute) Elevated troponin (Acute) Noncompliance with medication regimen (Acute) Diverticulosis of colon (Chronic) Abdominal pain, LLQ (Chronic) Epigastric abdominal pain of unknown etiology (Chronic) Medical History Coronary artery disease Diabetes Surgical History AAA [place]08[place]10/13[place] [facility] [place] - [facility] 11/13/13; [facility] F/U 7 YRS History of coronary artery stent placement S/P triple vessel bypass Social History (Updated 09/23/22 @ 22:58 by Darrick Minor) Smoking/Tobacco Use Status: Former Tobacco Use Smoking risk assessment performed?: Yes Alcohol Intake: current Drug use: Never Do you feel safe in your relationship?: Yes Additional Social history: Lives along in [place]. 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 Time Spent with Patient Time Spent with Patient: <45 minutes Time was spent: preparing to see the patient(eg.review tests), ordering medications,tests, procedures, indepentently interpreting results, counseling the patient and care coordination
[2022-09-26 14:30] VITALS: PULSE 89
== END 2022-09-26 19:01 | disposition home or self-care (01) | DRG 293 ==
LOC: ER 19:01 → MS 21:22
PROVIDERS: Internal Medicine; Admitting Provider Family Medicine; Emergency Provider Physician Assistant; PCP Family Medicine; Visit Provider Family Medicine
DX: I13.0 Hypertensive heart and chronic kidney disease with heart failure and stage 1 through stage 4 chronic kidney disease, or unspecified chronic kidney disease (principal); I16.0 Hypertensive urgency; R74.8 Abnormal levels of other serum enzymes; E11.22 Type 2 diabetes mellitus with diabetic chronic kidney disease; I25.10 Atherosclerotic heart disease of native coronary artery without angina pectoris; Z95.1 Presence of aortocoronary bypass graft; F17.290 Nicotine dependence, other tobacco product, uncomplicated; I25.5 Ischemic cardiomyopathy; E11.65 Type 2 diabetes mellitus with hyperglycemia; D64.9 Anemia, unspecified; Z91.148 Patient's other noncompliance with medication regimen for other reason; N18.9 Chronic kidney disease, unspecified; K57.30 Diverticulosis of large intestine without perforation or abscess without bleeding; Z95.5 Presence of coronary angioplasty implant and graft; R09.02 Hypoxemia
CPT/HCPCS: 36415; 80048; 80053; 87635; 93005; 96374; 96375; 99285; C8929; J1650; 71046; 83036; 83735; 83880; 84484; 85025; 85049; 93010; 99232; 99239; G0378; J1940; J3490

== ENCOUNTER 2022-10-04 00:26 | Outpatient (CLI) | payer MEDICARE, SELFPAY ==
--- NOTE | 2022-10-04 09:15 | DI.NM_ITS ---
APPROVED REPORT Exam: Pharmacologic Patient Location: Out-Patient Room/Bed: Stress Nurse: Wendy Barth RN Ordering Provider:MOLLY DAVID, Contact Number: [phone] BMI: 20.59 Baseline Rhythm: Sinus Rhythm Comment: PVC's Indications: Chest pain Medical History Medical History: Anemia, smoker, acute CHF, elevated troponin, T2DM, CAD Cardiac Medications: Metoprolol succinate, atorvastatin, aspirin, jardiance, liraglutide, torsemide Allergies: NKA Cardiac Risk Factors: CVD, family hx, HTN, diabetes, smoker (cigars) Previous Cardiac Procedures: Triple bipass 2012 Pretest Chest Pain Characteristics: None Exercise History: Sedentary Physical Disabilities: None Lung Sounds: Clear to auscultation, diminished throughout Heart Sounds: Regular Stress Test Details Test: Exercise stress converted to pharmacologic stress due to failure to obtain a diagnostic stres s test. Reason for pharmacologic stress test: changed from exercise stress test due to inability to reach t arget heart rate. Nuclear Acquisition: Rest Tc-99m/Stress Tc-99m 1 day Rest Isotope: Tc-99m Sestamibi. Dose: 10.0 Date: 10/04/2022 Injection Time: 0900 Stress Isotope: Tc-99m Sestamibi. Dose: 31.0 Date: 10/04/2022 Injection Time: 1038 HR Resting HR Supine: 67 bpm Max Heart Rate (APMHR): 150.952247 bpm Resting HR Standin bpm Target HR (85% APMHR): 127.216898 bpm Max HR Achieved: 91 bpm % of APMHR: 60.67 Recovery HR: 82 bpm HR response to stress: Blunted HR response to stress Comment: Metoprolol not held prior to test. Changed to jossy scan. BP Resting BP Supine: 148/56 mmHg Resting BP Standin/84 mmHg Max BP: 174/80 mmHg Recovery BP: 160/82 mmHg BP response to stress: Normal blood pressure response to stress. ECG Resting ECG: Sinus Rhythm Ectopy: Rare PVC's Stress ECG: Sinus Rhythm, nonspecific ST-T abnormalities ST Change: Nondiagnostic low heart rate Recovery ECG: Sinus Rhythm Recovery ST Change: Nondiagnostic low heart rate Clinical Reason for Termination: Fatigue Stress Symptoms: Chest pain, Leg Fatigue, General Fatigue Angina Score: Non-Limiting Rate Pressure Product: [id number] Stress ECG Conclusion 1. Resting electrocardiogram showed left ventricular hypertrophy and an old anterior wall myocardial infarction 2. Patient underwent testing using a combination of low-level exercise and pharmacologic stress with regadenoson 3. Peak heart rate achieved was 61% of predicted for age 4. The electrocardiographic portion of the test was nondiagnostic 5. See MPI report Stress Test Summary STAGE Time (mins) Speed (mph) Grade (%) HR BP SpO2 SYMPTOMS METS Supine 67 148/50 98 Standing 74 140/84 1 3 1.7 10 85 Fatigue 4.5 1 min post Lexiscan injection 89 162/82 Chest tightenss 3/10, general fatigue 3 min post Lexiscan injection 82 174/80 98 3/10 chest tightness (resolving) 6 min post Lexiscan injection 82 160/82 Chest tightness resolved Attempted gisela protocol with patient, at minute 2:46 transitioned to jossy scan with low level exerci se due to blunted heart rate and limited exercise capacity. Patient ambulated on treadmill at 1.0 mp h and zero % grade during lexiscan administration. MPI Conclusion There is an area of anteroapical infarction There is no ischemia Calculated EF is 14%. [place] is akinetic, remainder of the left ventricle is severely hypocontractile Radiologist Interpretation Radiologist Interpretation by: Quincy Teresa MD Interpretation Date/Time: 10/05/2022 16:42:04
[2022-10-04] MEDS: Regadenoson 0.4 MG/5 ML SYR IVP (11:24)
== END 2022-10-04 00:46 ==
LOC: DI 00:26
PROVIDERS: PCP Family Medicine; Visit Provider Internal Medicine
DX: I25.10 Atherosclerotic heart disease of native coronary artery without angina pectoris (principal)
CPT/HCPCS: 78452; 93016; 93018; 93017; J2785

== ENCOUNTER 2022-10-25 02:19 | Outpatient (CLI) | payer MEDICARE, SELFPAY ==
--- NOTE | 2022-10-25 14:25 | DI.RAD_ITS ---
Exam(s) XR STERNUM EXAM: XR STERNUM CLINICAL HISTORY: Likely sternal fracture,s22,20xa. TECHNIQUE: 2D digital imaging was performed. COMPARISON: CR,XR XR CHEST 2V PA LATERAL from 09/23/2022 FINDINGS: BONES: No acute fracture is present. No bony destructive lesion is seen. JOINTS: No dislocation present. SOFT TISSUE: Coronary artery stent noted. IMPRESSION: Unremarkable radiographs of the sternum. DATA REPOSITORY: RADIATION DOSE DELIVERED:
== END 2022-10-25 02:39 ==
PROVIDERS: PCP Family Medicine; Visit Provider Family Medicine
DX: S22.20XA Unspecified fracture of sternum, initial encounter for closed fracture (principal)
CPT/HCPCS: 71120

== ENCOUNTER 2023-08-22 13:23 | Emergency (ER) | payer MEDICARE, SELFPAY ==
[2023-08-22 13:31] VITALS: BP 178/94; PULSE 69; RESP 18; TEMP 36.7; O2SAT 98
--- NOTE | 2023-08-22 14:08 | W.ED.GENAD ---
Discharge Plan Disposition Patient Disposition: Home Discharge Details Clinical Impression: Skin lesion of neck Primary Care Provider: Lavelle Webber ED Provider: Christina Babb Home Meds and New Rx's Prescriptions: No Action semaglutide 2 mg/dose (8 mg/3 mL) pen injector 2 mg subcut QWEEK Qty: 3 3RF atorvastatin 80 mg tablet 80 mg PO QHS Qty: 90 3RF metoprolol succinate [Toprol XL] 50 mg tablet extended release 24 hr 50 mg PO DAILY Qty: 90 3RF torsemide 10 mg tablet See Rx Instructions .ROUTE .COMPLEX Qty: 90 3RF Rx Instructions: 10 mg orally one daily as needed for wt gain over 3 lbs in one week if associate w/ edema of feet or shortness of breath Jardiance 10 mg tablet 10 mg PO QAM Qty: 90 3RF tramadol 50 mg tablet 50 mg PO TID PRN (Reason: pain) Qty: 21 0RF (DME) pen needle, diabetic [Pen Needle] 31 gauge x 5/16 needle See Rx Instructions .ROUTE .MEDSUPPLY Qty: 100 3RF Rx Instructions: As directed to administer liraglutide once daily. Dispense covered brand. aspirin [Children's Aspirin] 81 mg Tablet,Chewable 81 mg PO DAILY Qty: 90 0RF Discharge Instructions Additional Instructions: We are able to see your primary care doctor's note and they have referred you to general surgery to get the neck lesion removed. If the surgical clinic has not called you by tomorrow then please call them at [phone] for an appt. We do not do biopsies or excisions in the emergency department. This may be a cyst or could be a basal cell as discussed. Return to ED for fever of 100.4 or above, spreading redness around this, exquisite pain in the area, any other concerns. HPI General Date/Time Provider Initiated Documentation: 08/22/23 14:06. HPI Narrative: 73-year-old male patient presents with a chief complaint of left-sided neck lesion that has been there for 3 to 4 months. On review of his recent PCP note, he told them that it had been there for 7 or 8 years. He says that sometimes when he squeezes it some snake like yellow material comes out of it. It occasionally itches. Sometimes his collar irritates it a little bit. He does pick at it sometimes. Has had no fevers or swollen glands. There is no redness around this 1.5 cm area. He says that his PCP told him he could come to the ER to see surgery to get it off. Related Data Home Medications Medication Instructions Recorded Confirmed aspirin 81 mg chewable tablet 81 mg PO DAILY #90 tabs 09/26/22 08/22/23 (Children's Aspirin) atorvastatin 80 mg tablet 80 mg PO QHS #90 tabs 10/22/22 08/22/23 empagliflozin 10 mg tablet 10 mg PO QAM #90 tabs 10/22/22 08/22/23 (Jardiance) metoprolol succinate 50 mg 50 mg PO DAILY #90 tabs 10/22/22 08/22/23 tablet,extended release 24 hr (Toprol XL) torsemide 10 mg tablet See Rx Instructions .Route 10/22/22 08/22/23 .COMPLEX #90 tabs tramadol 50 mg tablet 50 mg PO TID PRN pain #21 tabs 10/22/22 08/22/23 pen needle, diabetic 31 gauge x #100 ea 11/18/22 08/22/23 5/16 (Pen Needle) semaglutide 2 mg/dose (8 mg/3 mL) 2 mg (0.75 mL) subcut QWEEK #3 mL 05/03/23 08/22/23 subcutaneous pen injector Previous Rx's Medication Instructions Recorded aspirin 81 mg chewable tablet 81 mg PO DAILY #90 tabs 09/26/22 (Children's Aspirin) atorvastatin 80 mg tablet 80 mg PO QHS #90 tabs 10/22/22 empagliflozin 10 mg tablet 10 mg PO QAM #90 tabs 10/22/22 (Jardiance) metoprolol succinate 50 mg 50 mg PO DAILY #90 tabs 10/22/22 tablet,extended release 24 hr (Toprol XL) torsemide 10 mg tablet See Rx Instructions .Route 10/22/22 .COMPLEX #90 tabs tramadol 50 mg tablet 50 mg PO TID PRN pain #21 tabs 10/22/22 pen needle, diabetic 31 gauge x #100 ea 11/18/22 5/16 (Pen Needle) semaglutide 2 mg/dose (8 mg/3 mL) 2 mg (0.75 mL) subcut QWEEK #3 mL 05/03/23 subcutaneous pen injector Allergies Allergy/AdvReac Type Severity Reaction Status Date / Time No Known Allergies Allergy Verified 08/22/23 13:35 General Stated Complaint: RashLesion DENIS: 4 Review of Systems Narrative: See HPI Constitutional Constitutional: Denies chills and Denies fever(s) ENT Comments: Right anterior neck (over mid SCM) with 1.5 cm raised pearly irregular lesion; small scab on one portion. FROM. Exam Const General: no acute distress, well developed and well groomed Orientation: alert, awake and oriented x3 HENMT Head: normocephalic and atraumatic Face and sinus: normal facial exam Eyes Conjunctivae: conjunctivae normal Neck Neck: full ROM and other (R irreg mobile 1.5 cm raised lesion over mid SCM; pearly w/sm scab, NTP) Resp Effort & Inspection: normal respiratory effort and able to speak in complete sentences Skin General skin exam: other (as noted previously) Extrem General: other (XIE) Course Vital Signs Vital signs: Vital Signs Temperature 36.7 C 08/22/23 13:31 Pulse 69 08/22/23 13:31 Respiratory Rate 18 08/22/23 13:31 Blood Pressure 178/94 H 08/22/23 13:31 Pulse Oximetry 98 08/22/23 13:31 Temperature 36.7 C 08/22/23 13:31 Temperature Source Temporal Artery Scan 08/22/23 13:31 Pulse 69 08/22/23 13:31 Respiratory Rate 18 08/22/23 13:31 Respiratory Effort Normal, Non-Labored 08/22/23 13:44 Blood Pressure 178/94 H 08/22/23 13:31 Blood Pressure Position Sitting 08/22/23 13:31 Pulse Oximetry 98 08/22/23 13:31 Oxygen Delivery Method Room Air 08/22/23 13:31 Oxygen Flow Rate 0 08/22/23 13:31 Medical Decision Making Patient's PCP made a referral to the surgical clinic. Patient was given this phone number and told to call them tomorrow to see when his appointment time is. Will return for fever, spreading redness or pain around the lesion, any other concerns. Quality:SDOH Health Related Social Needs: No Data to Display PFSH All Active Problems Skin lesion of neck (Acute) Epidermal inclusion cyst (Acute) Anemia, mild (Acute) Renal insufficiency (Chronic) Smoker (Acute) Acute CHF (Acute) Diverticulosis of colon (Chronic) Abdominal pain, LLQ (Chronic) Medical History Coronary artery disease Diabetes Surgical History History of coronary artery stent placement S/P triple vessel bypass Colonoscopy - [facility] 11/13/13; [facility] F[facility]U 7 YRS [place] [facility] [place] Smoking/Tobacco Use Status: Current-Occasional Quit status: has quit before Smoking risk assessment performed?: Yes Alcohol Intake: current Drug use: Never Adopted: No Caregiver/Support person: No Foster care: No Household members: none Housing: house Number of Children: 1 number of grandchildren: 5 Communication Needs: None Education Level: college Details: Associates' Degree Do you need help understanding health information?: Never current occupation: Retired Pets and animals: No Sexually active: No Do you think of yourself as: straight/heterosexual Current gender identity: male What is your relationship status?: How often do you talk on the phone with friends or family?: three or more times per week How often do you get together with friends or relatives?: three or more times per week Do you belong to any clubs or organized social groups?: no Panel score (0-1 are the most socially isolated patients): 1 What type of physical activity do you participate in: decline to answer Duration: decline to answer Frequency: decline to answer Shweta/Congregation: Muslim Special shweta needs: No Seatbelt use: sometimes Helmet use: No (Never) Drive intox or ride w/intox bus driver supervisor: No Do you feel safe in your relationship?: Yes Additional Social history: Lives along in [place]. 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
[2023-08-22 15:50] VITALS: BP 151/86; PULSE 78; RESP 16; TEMP 36.7; O2SAT 97
== END 2023-08-22 15:51 | disposition home or self-care (01) ==
PROVIDERS: Emergency Provider Emergency Medicine; PCP Family Medicine
DX: R22.1 Localized swelling, mass and lump, neck (principal); L98.9 Disorder of the skin and subcutaneous tissue, unspecified
CPT/HCPCS: 99281; 99282

== ENCOUNTER 2023-09-13 10:12 | Emergency (ER) | payer MEDICARE, SELFPAY ==
[2023-09-13 10:31] VITALS: BP 171/100; PULSE 73; RESP 18; TEMP 36.5; O2SAT 94
--- NOTE | 2023-09-13 11:27 | W.ED.GENAD ---
Discharge Plan Disposition Patient Disposition: Home Condition: Stable Discharge Details Clinical Impression: Contusion of left shoulder, initial encounter Primary Care Provider: Lavelle Webber ED Provider: Juan Covington Home Meds and New Rx's Prescriptions: Continued semaglutide 2 mg/dose (8 mg/3 mL) pen injector 2 mg subcut QWEEK Qty: 3 3RF atorvastatin 80 mg tablet 80 mg PO QHS Qty: 90 3RF metoprolol succinate [Toprol XL] 50 mg tablet extended release 24 hr 50 mg PO DAILY Qty: 90 3RF Jardiance 10 mg tablet 10 mg PO QAM Qty: 90 3RF tramadol 50 mg tablet 50 mg PO TID PRN (Reason: pain) Qty: 21 0RF (DME) pen needle, diabetic [Pen Needle] 31 gauge x 5/16 needle See Rx Instructions .ROUTE .MEDSUPPLY Qty: 100 3RF Rx Instructions: As directed to administer liraglutide once daily. Dispense covered brand. aspirin [Children's Aspirin] 81 mg Tablet,Chewable 81 mg PO DAILY Qty: 90 0RF No Action torsemide 10 mg tablet See Rx Instructions .ROUTE .COMPLEX Qty: 90 3RF Rx Instructions: 10 mg orally one daily as needed for wt gain over 3 lbs in one week if associate w/ edema of feet or shortness of breath Discharge Instructions Instructions: Shoulder Pain (ED) Additional Instructions: Please use sling over the next 1 week. Remove your arm from sling a couple times a day to perform pendulum exercises as discussed. Please take ibuprofen over the counter. Take 600mg by mouth every 6 hours as needed for pain over the next 1 week. Please contact your primary care physician to arrange follow-up. Return to the ER immediately for any worsening or new concerning symptoms. Referrals: [facility] [Provider Group] Lavelle Webber DO [Primary Care Provider] - HPI General Mode of arrival: ambulatory. Date/Time Provider Initiated Documentation: 09/13/23 11:16. Limitations to Documentation: no limitations. Information obtained by: patient. HPI Narrative: 73-year-old male presents with chief complaint of left shoulder pain. Patient notes he tripped and fell while carrying a heavy bag of pellets 4 days ago. Patient fell from standing to the ground. He was holding bag of pellets on his right shoulder and fell and impacted his left shoulder on the ground. He did not hit his head or lose consciousness. No neck or back pain. No pelvic or hip pain. No other injury sustained. Patient notes pain is worse when he attempts to abduct or elevate his arm. Pain localized to shoulder laterally. No associated numbness or tingling. Related Data Home Medications Medication Instructions Recorded Confirmed aspirin 81 mg chewable tablet 81 mg PO DAILY #90 tabs 09/26/22 09/13/23 (Children's Aspirin) atorvastatin 80 mg tablet 80 mg PO QHS #90 tabs 10/22/22 09/13/23 empagliflozin 10 mg tablet 10 mg PO QAM #90 tabs 10/22/22 09/13/23 (Jardiance) metoprolol succinate 50 mg 50 mg PO DAILY #90 tabs 10/22/22 09/13/23 tablet,extended release 24 hr (Toprol XL) torsemide 10 mg tablet See Rx Instructions .Route 10/22/22 09/13/23 .COMPLEX #90 tabs tramadol 50 mg tablet 50 mg PO TID PRN pain #21 tabs 10/22/22 09/13/23 pen needle, diabetic 31 gauge x #100 ea 11/18/22 09/13/2316 (Pen Needle) semaglutide 2 mg/dose (8 mg/3 mL) 2 mg (0.75 mL) subcut QWEEK #3 mL 05/03/23 09/13/23 subcutaneous pen injector Previous Rx's Medication Instructions Recorded aspirin 81 mg chewable tablet 81 mg PO DAILY #90 tabs 09/26/22 (Children's Aspirin) atorvastatin 80 mg tablet 80 mg PO QHS #90 tabs 10/22/22 empagliflozin 10 mg tablet 10 mg PO QAM #90 tabs 10/22/22 (Jardiance) metoprolol succinate 50 mg 50 mg PO DAILY #90 tabs 10/22/22 tablet,extended release 24 hr (Toprol XL) torsemide 10 mg tablet See Rx Instructions .Route 10/22/22 .COMPLEX #90 tabs tramadol 50 mg tablet 50 mg PO TID PRN pain #21 tabs 10/22/22 pen needle, diabetic 31 gauge x #100 ea 11/18/22 5/16 (Pen Needle) semaglutide 2 mg/dose (8 mg/3 mL) 2 mg (0.75 mL) subcut QWEEK #3 mL 05/03/23 subcutaneous pen injector Allergies Allergy/AdvReac Type Severity Reaction Status Date / Time No Known Allergies Allergy Verified 09/13/23 11:20 General Stated Complaint: Orthopedic DENIS: 3 Review of Systems Musculoskeletal Musculoskeletal: Reports as per HPI Neurologic Neurologic: Reports as per HPI Exam Const General: cooperative and no acute distress HENMT Head: normocephalic and atraumatic Neck Neck: trachea midline Cardio Rate: regular rate and not tachycardic Rhythm: regular rhythm Neuro General: patient alert, patient awake and tone normal Extrem Left upper extremity: shoulder/upper arm Details: axillary nerve sensory function normal and abnormal ROM Details: pain with active ROM Details: in ABduction and in extension; no swelling and hand Details: normal capillary refill, neuromotor exam normal, neurosensory exam normal and vascular exam Details: radial pulse present Details: 2+ Course Vital Signs Vital signs: Vital Signs Temperature 36.5 C 09/13/23 10:31 Pulse 73 09/13/23 10:31 Respiratory Rate 18 09/13/23 10:31 Blood Pressure 171/100 H 09/13/23 10:31 Pulse Oximetry 94 09/13/23 10:31 Temperature 36.5 C 09/13/23 10:31 Temperature Source Skin 09/13/23 10:31 Pulse 73 09/13/23 10:31 Respiratory Rate 18 09/13/23 10:31 Respiratory Effort Normal, Non-Labored 09/13/23 11:17 Blood Pressure 171/100 H 09/13/23 10:31 Blood Pressure Position Sitting 09/13/23 10:31 Pulse Oximetry 94 09/13/23 10:31 Oxygen Delivery Method Room Air 09/13/23 10:31 Oxygen Flow Rate 0 09/13/23 10:31 Pain Level 2 09/13/23 11:17 Medical Decision Making 1130??73-year-old male presents 4 days after mechanical slip and fall to the ground with injury to his left shoulder. Patient has pain with any attempted elevation or abduction of the shoulder. No other injury sustained. Concern for proximal humerus fracture. Plan to obtain x-ray. Patient offered Tylenol, ibuprofen and ice and he declined. 1255 --x-ray of the left shoulder interpreted by radiology: No acute fracture or dislocation. Suspect shoulder contusion. Plan for sling with outpatient follow-up. Usual and customary discharge instructions were reviewed. Quality:[facility] Health Related Social Needs: No Data to Display [facility] All Active Problems (Updated 09/13/23 @ 13:01 by Juan Covington MD) Contusion of left shoulder, initial encounter (Acute) Skin lesion of neck (Acute) Epidermal inclusion cyst (Acute) Anemia, mild (Acute) Renal insufficiency (Chronic) Smoker (Acute) Acute CHF (Acute) Diverticulosis of colon (Chronic) Abdominal pain, LLQ (Chronic) Medical History Coronary artery disease Diabetes Surgical History History of coronary artery stent placement S/P triple vessel bypass Colonoscopy - [facility] 11/13/13; [facility] F/U 7 YRS AAA repair [place]08[place]10/13[place] [facility] [place] Smoking/Tobacco Use Status: Current-Occasional Quit status: has quit before Smoking risk assessment performed?: Yes Alcohol Intake: current Drug use: Never Adopted: No Caregiver/Support person: No Foster care: No Household members: none Housing: house Number of Children: 1 number of grandchildren: 5 Communication Needs: None Education Level: college Details: Associates' Degree Do you need help understanding health information?: Never current occupation: Retired Pets and animals: No Sexually active: No Do you think of yourself as: straight/heterosexual Current gender identity: male What is your relationship status?: How often do you talk on the phone with friends or family?: three or more times per week How often do you get together with friends or relatives?: three or more times per week Do you belong to any clubs or organized social groups?: no Panel score (0-1 are the most socially isolated patients): 1 What type of physical activity do you participate in: decline to answer Duration: decline to answer Frequency: decline to answer Shweta/Yazidi: Caodaism Special shweta needs: No Seatbelt use: sometimes Helmet use: No (Never) Drive intox or ride w/intox truck driver salesperson: No Do you feel safe in your relationship?: Yes Additional Social history: Lives along in [place]. 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
--- NOTE | 2023-09-13 12:01 | DI.RAD_ITS ---
Exam(s) XR SHOULDER LT COMPLETE 2+V EXAM: XR SHOULDER LT COMPLETE 2+V CLINICAL HISTORY: fall, pain. TECHNIQUE: 2D digital imaging was performed of the left shoulder. Five images were obtained. AP, G rashey, Y-view and axillary views were obtained. COMPARISON: CR,XR XR CHEST 2V PA LATERAL from 09/23/2022 CR XR STERNUM from 10/25/2022 FINDINGS: BONES: No acute fracture is present. No bony destructive lesion is seen. JOINTS: No dislocation present. There are degenerative changes seen at the acromioclavicular joint. There are mild degenerative changes seen at the glenohumeral joint. Mild spurring is seen on the und ersurface of the acromion. SOFT TISSUE: The visualized lung is clear. IMPRESSION: No acute fracture or dislocation. DATA REPOSITORY: RADIATION DOSE DELIVERED:
== END 2023-09-13 13:09 | disposition home or self-care (01) ==
PROVIDERS: Emergency Provider Student in an Organized Health Care Education/Training Program; PCP Family Medicine
DX: S40.012A Contusion of left shoulder, initial encounter (principal); I25.10 Atherosclerotic heart disease of native coronary artery without angina pectoris; E11.9 Type 2 diabetes mellitus without complications; Z95.1 Presence of aortocoronary bypass graft; Z95.5 Presence of coronary angioplasty implant and graft; Z79.84 Long term (current) use of oral hypoglycemic drugs; Z79.82 Long term (current) use of aspirin; Z79.85 Long-term (current) use of injectable non-insulin antidiabetic drugs
CPT/HCPCS: 99283; 73030

== ENCOUNTER → 2023-09-15 09:22 | Outpatient (BNVA) | payer MEDICARE, SELFPAY | PROVIDERS: PCP Family Medicine; Referring Provider Family Medicine; Visit Provider Physical Therapy Assistant | DX: L98.9 Disorder of the skin and subcutaneous tissue, unspecified (principal) | CPT/HCPCS: 99213 ==

== ENCOUNTER 2023-10-18 08:35 | Day surgery (SDC) | payer MEDICARE, SELFPAY ==
[2023-10-18 08:45] VITALS: BP 132/72; PULSE 65; RESP 16; TEMP 36.2; O2SAT 95
[2023-10-18] MEDS: Lactated Ringers 1,000 ML 80 ML IV (09:31)
[2023-10-18] MEDS: Acetaminophen 500 MG TAB 1000 MG PO (09:45)
[2023-10-18] MEDS: Gabapentin 300 MG CAP PO (09:45)
--- NOTE | 2023-10-18 10:55 | SKI_PTH ---
PATIENT: Dustin Wyatt LOC: [facility] U#:[id number] AGE/SX: 73/M ROOM: RE10/18/[address]: Arabella Navarro : 1950 BED: DIS: 10/18/2023 SPEC #: [id number] RECD: 10/18/23 12:51 STATUS: BOBBI RENicola #: [id number] THAI: 10/18/23 10:[address]: Arabella Navarro DEPT: Surgical Specimen RECD BY: Key Harvey ENTERED: 10/18/23 12:52 SP TYPE: PRESLEY KENDRICK DR: Lavelle Webber DO Tissues: 1 - SKIN BIOPSY(SHAVE/PUNCH) 2 - SKIN BIOPSY(SHAVE/PUNCH) Procedures: SKIN LEVEL 4 Comments: [id number]
[2023-10-18] MEDS: Bupivacaine 0.25% Pres-Free W/EPI 30 ML VIAL (11:08)
[2023-10-18] MEDS: Bacitracin 1 PACKET (11:08)
[2023-10-18] MEDS: Ketorolac 15 MG/ML VIAL IVP (11:17)
--- NOTE | 2023-10-18 11:19 | PDOC.DSDIS_ITS ---
Date of service: 10/18/23 Time of Service: 11:19 Discharge Plan Disposition Patient Disposition: Home Condition: Good Discharge Details Attending Provider: Arabella Navarro Primary Care Provider: Lavelle Webber Home Meds and New Rx's Prescriptions: No Action semaglutide 2 mg/dose (8 mg/3 mL) pen injector 2 mg subcut QWEEK Qty: 3 3RF atorvastatin 80 mg tablet 80 mg PO QHS Qty: 90 3RF metoprolol succinate [Toprol XL] 50 mg tablet extended release 24 hr 50 mg PO DAILY Qty: 90 3RF torsemide 10 mg tablet See Rx Instructions .ROUTE .COMPLEX Qty: 90 3RF Patient Comments: Pt stopped taking 4-5mths ago; reports that MD aware Rx Instructions: 10 mg orally one daily as needed for wt gain over 3 lbs in one week if associate w/ edema of feet or shortness of breath Jardiance 10 mg tablet 10 mg PO QAM Qty: 90 3RF tramadol 50 mg tablet 50 mg PO TID PRN (Reason: pain) Qty: 21 0RF (DME) pen needle, diabetic [Pen Needle] 31 gauge x 5/16 needle See Rx Instructions .ROUTE .MEDSUPPLY Qty: 100 3RF Rx Instructions: As directed to administer liraglutide once daily. Dispense covered brand. aspirin [Children's Aspirin] 81 mg Tablet,Chewable 81 mg PO DAILY Qty: 90 0RF Discharge Instructions Additional Instructions: Caring for Your Incision Pain Control Use ice!? Ice keeps the swelling down and swelling is what causes pain.? Never apply ice directly to the skin.? Wrap it in a towel or cloth.? Apply ice 20 minutes on and 20 minutes off for pain control.? Use as needed. Take tylenol 500 mg by mouth with food every 4 hours as needed for pain. Or ibuprofen 600 mg by mouth with food every 6 hours as needed for pain.? Do not take tylenol if you have a history of heavy drinking , hepatits C or liver problems.? Do not take ibuprofen if you have a history of stomach u lcers/problems, bleeding problem or kidney issues. Home care ? Always wash your hands before touching your incision. ? Keep the incision clean, dry, and out of water, keep the incision out of water. ? Do not to pick at the scabs. Scabs help protect the wound. ? You can take a shower in 24 hours and wash the incision with soap and water. Pat dry/don?t scrub. No swimming or hot tubs for two weeks. ? Pat stitches dry if they get wet. Don't rub. ? Check the incision site daily for pain, redness, drainage, swelling, or separation of the incision edges. ? If there is a bandage (dressing) over the incision, change this every 24 hours as instructed by your provider. Using clean hands change the dressing as directed by your healthcare provider. Always wash your hands before changing your dressing. ? Make sure any clothing that touches the incision is loose-fitting. This will prevent rubbing. ? Try to avoid from rough play, contact sports, or physical activities for two weeks. This can put you at risk of opening the incision. ? Make sure you avoid doing things that could cause dirt or sweat to get in or on the incision. As your incision heals, the skin may appear pink or red. It may also feel slightly bumpy or raised. This is called a healing ridge. Over time, the color should fade and the raised skin will become less noticeable. ? Follow-up care -Aziza or sutures generally need to be removed in 7-10 days.?? Be sure to return for suture or staple removal as directed. ? When to seek medical care ? More pain, redness, swelling, bleeding, or foul-smelling discharge around the incision area ? Fever of 101?F (38.3?C) or higher, or as directed by your child's healthcare provider ? Shaking chills ? Vomiting or nausea that doesn?t go away ? Numbness, coldness, or tingling around the incision area, or changes in skin color ? Opening of the sutures or wound Stitches or aziza come apart or fall out or surgical tape falls off before 7 days, or as directed by your healthcare provider [facility] make appt w/ Dr. Navarro in 10 days. [phone] Activity:: see above Remove Dressings/Wound Care:: 24 hours Shower/Bathe:: 24 hours Diet:: Low Sodium Discharge Orders Discharge Orders: Discharge Order (Routine); Ordered 10/18/23 Ordered By: Arabella Navarro DS: Diagnosis Discharge Diagnosis (1) Basal cell carcinoma of skin of face: Status: Acute Asessment and Plan: The patient is doing well post-op from their basals cell skin cancer removal.? They are having no nausea or vomiting. They are tolerating liquids and a snack. The pt is not having any chest pain or SOB.? Their pain is adequately controlled. They have been able to urinate.? ?HEENT:? no eye pain/drainage/redness/swelling. Mild sore throat ?Cardio- NSR, no chest pain, BP stable- see VS record ?Pulm: no sob or productive cough. No hemoptysis ?Incision- dressing is c/d/i w/ no excessive bleeding or drainage ?I discussed with the patient the findings at the time of surgery and the patient?s progress. ?We reviewed expectations at home; what the patient could expect for recovery time, and in the post-operative period.? We discussed the importance of walking to avoid blood clots and pneumonia.? We discussed and reviewed the patient's post-operative wound care and dressing needs.?? We reviewed their step-hodges pain management plan, Rx called to the pharmacy of their choice.? We reviewed activity and limitations-see discharge instructions. We reviewed warning signs, and when to seek medical attention- see d/c instructions.?? Patient was given a postoperative follow-up appointment. Patient verbalized understanding of their postoperative instructions, how do to take care of themselves and their incision, and the pain management plan. Please see discharge instructions.? (2) Acute CHF: Status: Acute (3) Type 2 diabetes mellitus without complications: Status: Suspected (4) Constipation: Status: Resolved (5) Diverticulosis of colon: Status: Chronic (6) Internal hemorrhoids: Status: Resolved (7) Renal insufficiency: Status: Chronic (8) Anemia, mild: Status: Acute (9) Smoker: Status: Acute (10) Coronary artery disease:
[2023-10-18 11:28] VITALS: BP 125/71; PULSE 62; RESP 16; TEMP 36.7; O2SAT 96
--- NOTE | 2023-10-18 11:32 | W.PM.OP ---
Date of service: 10/18/23 Time of Service: 11:32 Operative Note Operative Note DATE OF PROCEDURE: 10/18/23 PRE-OP DIAGNOSIS: Basal cell skin cancer, path pending POST-OP DIAGNOSIS: same PROCEDURE: Excision of right neck lesion. Biopsy and fulguration of right zygomatic arch lesion SURGEON: Arabella Navarro AIRCRAFT MECHANIC ELECTRICAL AND RADIO: Ayana Bella ANESTHESIA TYPE: Local By Surgeon Refer to Anesthesia Record ESTIMATED BLOOD LOSS: 2 PATHOLOGY: other COMPLICATIONS: None Patient was transported to: same day Patient's condition: stable Procedure Description: Patient is a 73-year-old male who is here today for skin cancer removal. Patient has had the lesions for quite some time and they can continue to grow. He has a lesion on the right zygomatic arch near adjacent to the nose. It is 1.5 x 1 cm with a central scar. He also has another 2.5 x 2 cm skin lesion over the right sternocleidomastoid muscle with a central ulceration. The lesions are marked in preop. No antibiotics are given. Patient is brought to the operative suite placed supine position. He is prepped and draped in the usual sterile fashion using Betadine scrub solution. Timeout was performed. 20 cc of quarter percent Marcaine plain is used for local anesthetization. The nasal lesion/zygomatic lesion is attended to first. A pharmaceutical service representative biopsy was taken at the 6 o'clock position and sent for tissue diagnosis. This is about 1 x 1 mm. The rest of the lesion is cauterized/fulgurated as there was not enough tissue to close. The lesion on the right neck is then attended to him. It is sharply excised. Electrocautery was used to provide hemostasis and to raise skin flaps. The incision is then closed in 2 layers with 4-0 Monocryl. 4-0 Prolene is used in the central tension area for buttressing. Bacitracin and Band-Aids are applied. Patient hopes neurological complication transferred to same-day surgery in stable condition.
== END 2023-10-18 12:23 | disposition home or self-care (01) ==
PROVIDERS: PCP Family Medicine; Visit Provider Surgery
DX: C44.41 Basal cell carcinoma of skin of scalp and neck; C44.319 Basal cell carcinoma of skin of other parts of face
CPT/HCPCS: 11102; 11626; 12041; 17263; 88305; J1885

== ENCOUNTER → 2023-10-31 11:25 | Outpatient (BNVA) | payer MEDICARE, SELFPAY | PROVIDERS: PCP Family Medicine; Referring Provider Family Medicine; Visit Provider Surgery | DX: Z48.817 Encounter for surgical aftercare following surgery on the skin and subcutaneous tissue (principal); C44.310 Basal cell carcinoma of skin of unspecified parts of face ==

== ENCOUNTER → 2023-11-08 08:47 | Outpatient (BNVA) | payer MEDICARE, SELFPAY | PROVIDERS: PCP Family Medicine; Referring Provider Family Medicine; Visit Provider Surgery | DX: Z48.817 Encounter for surgical aftercare following surgery on the skin and subcutaneous tissue (principal) ==

== ENCOUNTER 2025-01-17 10:58 | Outpatient (CLI) | payer MEDICARE, SELFPAY ==
[2025-01-17 11:32] LABS: ALT 31 U/L (16-63); AST 22 U/L (15-37); Albumin 3.9 g/dL (3.4-5.0); Alkaline Phosphatase 104 U/L (46-116); Anion Gap 10.0 mmol/L (3-11); BUN 30 mg/dL (7-18); Bilirubin, Total 0.4 mg/dL (0.2-1.0); CO2 25.0 mmol/L (21.0-32.0); Calcium 8.9 mg/dL (8.5-10.1); Calculated LDL 46 mg/dL (<100); Chloride 101 mmol/L (98-107); Cholesterol 107 mg/dL (<200); Estimated GFR 53.40 (mL/min/1.73m2); Glucose 94 mg/dL (74-106); HDL Cholesterol 54 mg/dL (>or=40); Potassium 4.2 mmol/L (3.5-5.1); Sodium 136 mmol/L (136-145); Total Protein 7.6 g/dL (6.4-8.2); Triglyceride 36 mg/dL (<150)
== END 2025-01-17 10:59 | disposition home or self-care (01) ==
LOC: LBO 10:59
PROVIDERS: PCP Family Medicine; Visit Provider Family Medicine
DX: E11.9 Type 2 diabetes mellitus without complications (principal)
CPT/HCPCS: 36415; 80053; 80061

== ENCOUNTER 2025-04-22 10:32 | Observation (INO) | payer MEDICARE, SELFPAY ==
[2025-04-22] VITALS (59 sets, daily range): BP systolic 131–188; BP diastolic 72–103; PULSE 68–120; RESP 16–43; TEMP 36.7–36.9; O2SAT 86–102
--- NOTE | 2025-04-22 10:30 | RT.EKG_ITS ---
APPROVED REPORT Exam: Resting ECG Reason for Exam: Chest Pressure Patient Location: E HR:88 bpm ECG Measurements Heart Rate 88 AXIS UT 131 P 71 QRSd 111 QRS -17 QT 396 T -1 QTc 479 Conclusion Sinus rhythm...normal P axis, V-rate 60- 99 Probable left ventricular hypertrophy...(RaVL+SV3)xQRSd >280 Inferior infarct, old...Q >35mS, II III aVF No Occlusion LA
--- NOTE | 2025-04-22 10:45 | DI.RAD_ITS ---
Exam(s) XR CHEST 2V PA LATERAL EXAM: XR CHEST 2V PA LATERAL CLINICAL HISTORY: shortness of breath, wheezing TECHNIQUE: 2D digital imaging was performed of the chest. Two images were obtained. PA and lateral views were obtained. COMPARISON: CR XR CHEST 2V PA LATERAL from 09/23/2022 CR,XR XR CHEST 2V PA LATERAL from 09/23/2022 CR XR STERNUM from 10/25/2022 FINDINGS: MEDIASTINUM: Normal. HEART: Normal. PULMONARY VASCULATURE: Normal. LUNGS: There are bilateral lower lobe infiltrates, left greater than right. The lungs are hyperinflated and with flattened diaphragms suggesting underlying COPD. PLEURAL SPACE: No pleural effusion or pneumothorax. BONE:Within normal limits for the patient's age. OTHER FINDINGS:Normal. IMPRESSION: 1. Bilateral basilar infiltrates, left greater than right. This may represent pneumonia. Please correlate clinically. 2. COPD. DATA REPOSITORY: RADIATION DOSE DELIVERED:
[2025-04-22] MEDS: Albuterol/Ipratropium 3 ML UPD VIAL 6 ML UPD (11:12)
[2025-04-22] MEDS: methylPREDNISolone SUCC 125 MG VIAL IVP (11:12)
[2025-04-22 11:17] LABS: BE (Venous) -7 mmol/L (-2-3); HCO3 (Venous) 20 mmol/L (23-28); O2 Sat (Venous) 38 %; TCO2 (Venous) 18 mmol/L (24-29); pCO2 (Venous) 38 mmHg (41-51); pO2 (Venous) 24 mmHg
--- NOTE | 2025-04-22 11:17 | W.ED.GENAD ---
Discharge Plan Disposition Patient Disposition: Admit to [facility] Discharge Details Clinical Impression: Pneumonia Primary Care Provider: Lavelle Webber ED Provider: Key Carrillo Home Meds and New Rx's Prescriptions: No Action Jardiance 10 mg tablet 10 mg PO QAM Qty: 90 3RF (DME) pen needle, diabetic [Pen Needle] 31 gauge x 5/16 needle See Rx Instructions .ROUTE .MEDSUPPLY Qty: 100 3RF Rx Instructions: As directed to administer liraglutide once daily. Dispense covered brand. atorvastatin 80 mg tablet 80 mg PO QHS Qty: 90 3RF metoprolol succinate [Toprol XL] 50 mg tablet extended release 24 hr 50 mg PO DAILY Qty: 90 3RF Trulicity 0.75 mg/0.5 mL pen injector 0.75 mg subcut QWEEK Qty: 2 0RF aspirin [Children's Aspirin] 81 mg Tablet,Chewable 81 mg PO DAILY Qty: 90 0RF HPI General Date/Time Provider Initiated Documentation: 04/22/25 10:33. HPI Narrative: This 75-year-old male presents with shortness of breath that started 2 days prior to arrival. He developed a nonproductive cough now has some chest pressure mostly after coughing. He does smoke cigars and tobacco. He does inhale cigars. He denies a known history of COPD. Denies any calf pain or swelling or history of coagulopathy in the past. Does have history of coronary artery disease with triple bypass and AAA repair. Denies any fever. Symptoms are worse with coughing and exertion. Denies exacerbation with laying in the supine position. Related Data Home Medications Medication Instructions Recorded Confirmed aspirin 81 mg chewable tablet 81 mg PO DAILY #90 tabs 09/26/22 04/22/25 (Children's Aspirin) pen needle, diabetic 31 gauge x #100 ea 11/18/22 04/22/2516 (Pen Needle) atorvastatin 80 mg tablet 80 mg PO QHS #90 tabs 08/30/24 04/22/25 empagliflozin 10 mg tablet 10 mg PO QAM #90 tabs 01/17/25 04/22/25 (Jardiance) metoprolol succinate 50 mg 50 mg PO DAILY #90 tabs 02/28/25 04/22/25 tablet,extended release 24 hr (Toprol XL) dulaglutide 0.75 mg/0.5 mL 0.75 mg (0.5 mL) subcut QWEEK #2 mL 03/20/25 04/22/25 subcutaneous pen injector (Trulicity) Previous Rx's Medication Instructions Recorded aspirin 81 mg chewable tablet 81 mg PO DAILY #90 tabs 09/26/22 (Children's Aspirin) pen needle, diabetic 31 gauge x #100 ea 11/18/22 5/16 (Pen Needle) atorvastatin 80 mg tablet 80 mg PO QHS #90 tabs 08/30/24 empagliflozin 10 mg tablet 10 mg PO QAM #90 tabs 01/17/25 (Jardiance) metoprolol succinate 50 mg 50 mg PO DAILY #90 tabs 02/28/25 tablet,extended release 24 hr (Toprol XL) dulaglutide 0.75 mg/0.5 mL 0.75 mg (0.5 mL) subcut QWEEK #2 mL 03/20/25 subcutaneous pen injector (Trulicity) Allergies Allergy/AdvReac Type Severity Reaction Status Date / Time No Known Allergies Allergy Verified 04/22/25 10:40 General Stated Complaint: SOB DENIS: 2 Exam Narrative Exam Narrative: Alert and oriented 75-year-old male in mild respiratory distress diminished with inspiratory and expiratory wheezes and rhonchi speaking in complete sentences no calf swelling or tenderness , oropharynx patent uvula midline, cachectic, cardiac rate rhythm regular, no meningeal signs Course Vital Signs Vital signs: Vital Signs Temperature 36.9 C 04/22/25 10:33 Pulse 68 04/22/25 10:33 Respiratory Rate 16 04/22/25 10:33 Blood Pressure 153/86 H 04/22/25 10:33 Pulse Oximetry 86 L 04/22/25 10:33 Temperature 36.9 C 04/22/25 10:46 Temperature Source Temporal Artery Scan 04/22/25 10:46 Pulse 89 04/22/25 11:12 Respiratory Rate 20 04/22/25 11:12 Blood Pressure 153/86 H 04/22/25 10:46 Blood Pressure Position Sitting 04/22/25 10:46 Pulse Oximetry 96 04/22/25 11:12 Oxygen Delivery Method Room Air 04/22/25 11:12 Oxygen Flow Rate 0 04/22/25 11:12 Pain Level 6 04/22/25 10:46 Medical Decision Making Results: X-rays of bibasilar infiltrates per radiology interpretation my review CBC, leukocytosis of 18,000 with 15% neutrophils initial VBG with reassuring pH and pCO2 however carbon dioxide of 19, gap of 17 BUN of 35 on initial presentation so administered fluids and reevaluated and unfortunately these levels are worsening, gap is now 19 carbon oxide is 15.9 glucose is not 258 although I do not suspect this is DKA. Assessment and plan: Patient presenting initially in respiratory distress after ambulating into the emergency department, he was placed on oxygen although I remove the oxygen on evaluation initially and patient was 92% on room air. I did administer 3 DuoNebs and methylprednisolone with significant improvement in respiratory status patient was able to ambulate without hypoxia, greater than 92% consistently and 96% at rest with improved aeration although still wheezing. My initial plan was to discharge the patient home on dual antibiotics, however as his labs are worsening and he is developing an alkalosis, I think he requires admission to the hospital, his port score is 4 placing him at a percent risk of mortality if he is discharged home. He does have a history of CHF so we will be cautious with fluids he received 500 cc of fluid on initial presentation and I will infuse 200 cc an hour at this time. I will give patient another DuoNeb, order IV antibiotics ceftriaxone and doxycycline for a community-acquired inpatient pneumonia. I will add lactate and blood cultures as her plan now is for admission I spoke with Dr. Chávez and he will admit patient to the service, he is asked that we order an MRSA of nares and Legionella urine which have been placed. Patient is notably cachectic and has had significant weight loss since being placed on Trulicity. I spoke with Dr. Webber regarding his weight loss and anorexia and Dr. Valdes would like us to discontinue Trulicity temporarily. Patient has pending repeat VBG, lactate, blood cultures and admission at this time [facility] All Active Problems (Updated 04/22/25 @ 15:07 by KANNAN Dyer) Pneumonia (Acute) Basal cell carcinoma of skin of face (Acute) Anemia, mild (Acute) Renal insufficiency (Chronic) Smoker (Acute) Cigars Acute CHF (Acute) Diverticulosis of colon (Chronic) Abdominal pain, LLQ (Chronic) Medical History (Updated 04/22/25 @ 15:07 by KANNAN Dyer) Coronary artery disease Diabetes Surgical History (Updated 10/18/23 @ 15:03 by Jaja Rodriguez) History of radical excision of skin lesion (~09/2023) Right arch History of coronary artery stent placement S/P triple vessel bypass 2013. No longer required to f/u with cards per pt. Colonoscopy - MAC 11/13/13; [facility] F/U 7 YRS AAA repair (08/10/13) [facility] [place] Social History (Updated 05/21/24 @ 11:34 by Meaghan Moody [facility]) Smoking/Tobacco Use Status: Current every day Tobacco Type: cigars Tobacco: How many years used: 10 Quit status: has quit before Second Hand Exposure: Yes Smoking risk assessment performed?: Yes Alcohol Intake: never Drug use: Daily Substance use type: marijuana Adopted: No Caregiver/Support person: No Foster care: No Household members: none Housing: house Number of Children: 1 number of grandchildren: 5 Communication Needs: None Education Level: college Details: Associates' Degree Do you need help understanding health information?: Never current occupation: Retired Pets and animals: No Sexually active: No Do you think of yourself as: straight/heterosexual Current gender identity: male What is your relationship status?: How often do you talk on the phone with friends or family?: three or more times per week How often do you get together with friends or relatives?: once per week Do you belong to any clubs or organized social groups?: no Panel score (0-1 are the most socially isolated patients): 1 Shweta/Hindu: Voodoo Special shweta needs: No Seatbelt use: sometimes Do you feel safe at home: Yes Additional Social history: Lives alone in [place].
[2025-04-22 11:24] LABS: Abs Immature Grans 0.08 10^3/uL (0.0-0.06); HCT 42.2 % (40.0-50.0); HGB 14.2 g/dL (13.5-17.5); Immature Grans % 0.4 %; MCH 30.5 pg (27.0-33.0); MCHC 33.6 % (32.0-36.0); MCV 91 fL (80-95); MPV 10.1 fL (8.0-11.0); Platelet Count 279 10^3/uL (130-400); RBC 4.66 10^6/uL (4.36-5.78); RDW 15.3 % (11.8-14.1); RDW-SD 51.0 fL; WBC 18.05 10^3/uL (4.4-10.8)
[2025-04-22 11:55] LABS: ALT 30 U/L (16-63); AST 27 U/L (15-37); Albumin 3.4 g/dL (3.4-5.0); Alkaline Phosphatase 101 U/L (46-116); Anion Gap 18.3 mmol/L (3-11); BUN 30 mg/dL (7-18); Bilirubin, Total 1.0 mg/dL (0.2-1.0); CO2 19.7 mmol/L (21.0-32.0); Calcium 9.0 mg/dL (8.5-10.1); Chloride 96 mmol/L (98-107); Glucose 127 mg/dL (74-106); Potassium 4.4 mmol/L (3.5-5.1); Sodium 134 mmol/L (136-145); Total Protein 7.8 g/dL (6.4-8.2); Troponin I 27 ng/L (<or=76)
[2025-04-22 12:10] LABS: COVID-19 PCR Negative (Negative); RSV PCR Negative (Negative)
[2025-04-22 12:38] LABS: Troponin I 20 ng/L (<or=76)
[2025-04-22] MEDS: Albuterol/Ipratropium 3 ML UPD VIAL UPD ×3 (12:42→20:48)
[2025-04-22] MEDS: Normal Saline 500 ML IV (12:43)
[2025-04-22 15:11] LABS: Anion Gap 19.1 mmol/L (3-11); BUN 32 mg/dL (7-18); CO2 15.9 mmol/L (21.0-32.0); Calcium 8.4 mg/dL (8.5-10.1); Chloride 98 mmol/L (98-107); Glucose 258 mg/dL (74-106); Potassium 3.7 mmol/L (3.5-5.1); Sodium 133 mmol/L (136-145)
[2025-04-22 16:34] LABS: BE (Venous) -9 mmol/L (-2-3); HCO3 (Venous) 17 mmol/L (23-28); O2 Sat (Venous) 61 %; TCO2 (Venous) 16 mmol/L (24-29); pCO2 (Venous) 32 mmHg (41-51); pO2 (Venous) 33 mmHg
[2025-04-22] MEDS: cefTRIAXone 2 GM/50 ML BAG IVPB (16:41)
--- NOTE | 2025-04-22 17:30 | W.PM.HP.N ---
Date of service: 04/22/25 Time of Service: 17:30 Assessment and Plan Assessment and plan (1) Pneumonia: Status: Acute Assessment and plan: Initially hypoxic, has improved but PSI/PORT score is 93 based on age, CKD, CHF history so admission indicated. Smoking history, imaging suggests COPD but no formal diagnosis. I will continue steroids/bronchodilators. Continue ceftriaxone and doxycycline, get MRSA swab and legionella urine Ag (2) Sepsis: Status: Acute Assessment and plan: meets criteria with WBC, RR, HR, and pneumonia Treatment as above. Blood cx pending. No agressive fluids given heart disease and h/o HFrEF, BP stable. (3) Coronary artery disease: Assessment and plan: H/o CABG. EKG and troponin today reassuring. Continue atorvastatin and ASA, metoprolol. Check lipids to assess adherence. (4) Type 2 diabetes mellitus without complications: Status: Suspected Assessment and plan: Last A1c 6.4 on empagliflozin and Trulicity. Repeat due. I agree with alternative to trulicity given low BMI, though there is cardiac benefit. ISS while here. HOld empagliflozin with acute illness, risk of euglycemic DKA. AG mildly up but no acidosis. (5) Smoker: Status: Acute Assessment and plan: Cigars. Encourage full cessation. (6) Heart failure with reduced ejection fraction (HFrEF, <= 40%): Assessment and plan: H/o HFrEF on last echo in our record, doesn't follow with cardiology. Only on b-ivonne and SGLT2i in terms of GDMT. (7) CKD (chronic kidney disease) stage 3, GFR 30-59 ml/min: Assessment and plan: In range or lower than recent range of GFR, unclear baseline. 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 Follow. History of Present Illness History of Present Illness Chief Complaint: cough, weakness Narrative: 75 yo M, cigar smoker, with CAD, HFrEF, type 2 DM, and CKD3 who presented with 3 days of cough with progressive weakness and shortness of breath. Started 3 days prior to presentation, Thursday 04/19. Started with cough, runny nose, some sore throat, and felt hot and sweaty all night. He feels like there is sputum that he has a hard time bringing up, when he does it is thick but clear without blood. He finally came in because he was getting so exhausted, not sleeping, eating very little. He hasn't had chest pain or palpitations, but he does feel some chest congestion. He smokes cigars and cannabis, but not a lot. He has not had n/v or diarrhea, no symptoms and he is urinating. He doesn't check his sugars. He has been loosing weight slowly for years, more since starting Trulicity. He denies new respiratory exposures or sick contacts. Review of Systems All systems reviewed & are unremarkable except as noted in HPI and below PFSH All Active Problems (Updated 04/22/25 @ 19:40 by Darrick Minor) Sepsis (Acute) Pneumonia (Acute) Basal cell carcinoma of skin of face (Acute) Anemia, mild (Acute) Renal insufficiency (Chronic) Smoker (Acute) Cigars Acute CHF (Acute) Diverticulosis of colon (Chronic) Abdominal pain, LLQ (Chronic) Medical History (Updated 04/22/25 @ 19:40 by Darrick Minor) CKD (chronic kidney disease) stage 3, GFR 30-59 ml/min Heart failure with reduced ejection fraction (HFrEF, <= 40%) Coronary artery disease Diabetes Surgical History (Updated 10/18/23 @ 15:03 by Jaja Rodriguez) History of radical excision of skin lesion (~09/2023) Right arch History of coronary artery stent placement S/P triple vessel bypass 2013. No longer required to f/u with cards per pt. Colonoscopy - MAC 11/13/13; [facility] F/U 7 YRS AAA repair (08/10/13) [facility] [place] Social History (Updated 05/21/24 @ 11:34 by Meaghan Moody [facility]) Smoking/Tobacco Use Status: Current every day Tobacco Type: cigars Tobacco: How many years used: 10 Quit status: has quit before Second Hand Exposure: Yes Smoking risk assessment performed?: Yes Alcohol Intake: never Drug use: Daily Substance use type: marijuana Adopted: No Caregiver/Support person: No Foster care: No Household members: none Housing: house Number of Children: 1 number of grandchildren: 5 Communication Needs: None Education Level: college Details: Associates' Degree Do you need help understanding health information?: Never current occupation: Retired Pets and animals: No Sexually active: No Do you think of yourself as: straight/heterosexual Current gender identity: male What is your relationship status?: How often do you talk on the phone with friends or family?: three or more times per week How often do you get together with friends or relatives?: once per week Do you belong to any clubs or organized social groups?: no Panel score (0-1 are the most socially isolated patients): 1 Shweta/Baptism: Jainism Special shweta needs: No Seatbelt use: sometimes Do you feel safe at home: Yes Additional Social history: Lives alone in [place]. Meds Allergies and Home Medications Allergies Allergy/AdvReac Type Severity Reaction Status Date / Time No Known Allergies Allergy Verified 04/22/25 10:40 Home Medications Medication Instructions Recorded Confirmed Type aspirin 81 mg chewable tablet 81 mg PO DAILY #90 tabs 09/26/22 04/22/25 Rx (Children's Aspirin) pen needle, diabetic 31 gauge x #100 ea 11/18/22 04/22/25 Rx 5/16 (Pen Needle) atorvastatin 80 mg tablet 80 mg PO QHS #90 tabs 08/30/24 04/22/25 Rx empagliflozin 10 mg tablet 10 mg PO QAM #90 tabs 01/17/25 04/22/25 Rx (Jardiance) metoprolol succinate 50 mg 50 mg PO DAILY #90 tabs 02/28/25 04/22/25 Rx tablet,extended release 24 hr (Toprol XL) dulaglutide 0.75 mg/0.5 mL 0.75 mg (0.5 mL) subcut QWEEK #2 mL 03/20/25 04/22/25 Rx subcutaneous pen injector (Trulicity) Exam Narrative Exam Narrative: GEN: Cachectic appearing, alert and oriented x 4, pleasant and cooperative, gives linear history. hard of hearing. Appears fatigued but no acute distress at rest. HEENT: Head atraumatic. Conjunctiva clear with some crust on eyelashes. no icterus. PEERL, EOMI. no rhinorrhea. MMM, OP benign. Neck is supple with no masses or lymphadenopathy, trachea midline LUNGS: Diffuse wheeze with courser breath sounds inferiorly. RR in 20s, but able to speak in sentences, no distress at rest. CV: RRR with no murmurs, gallops, or rubs. ABD: active bowel sounds, soft, nontender and nondistended. No masses. EXT: no cyanosis, clubbing, or edema MSK: No joint redness or swelling NEURO: CN 2-12 grossly intact x [place]. Normal movement of 4 extremities. Normal speech and coordination. No tremor SKIN: No rashes or open wounds. PSYCH: normal mood and affect, normal thought process. Results Labs 04/22/25 11:07 04/22/25 14:45 Labs: Laboratory Results - last 24 hr 04/22/25 04/22/25 04/22/25 11:07 11:24 12:00 WBC 18.05 H RBC 4.66 Hgb 14.2 Hct 42.2 MCV 91 MCH 30.5 MCHC 33.6 RDW 15.3 H Plt Count 279 MPV 10.1 Immature Gran % 0.4 Neutrophils % 88.4 Lymphocytes % 3.9 Monocytes % 7.0 Eosinophils % 0.1 Basophils % 0.2 Nucleated RBC % 0.0 Absolute Neutrophils 15.96 H Absolute Lymphocytes 0.70 L Absolute Monocytes 1.26 H Absolute Eosinophils 0.02 Absolute Basophils 0.04 VBG pH 7.32 VBG pCO2 38 L VBG pO2 24 VBG HCO3 20 L VBG Total CO2 18 L VBG O2 Saturation 38 VBG Base Excess -7 L VBG Lactate Sodium 134 L Potassium 4.4 Chloride 96 L Carbon Dioxide 19.7 L Anion Gap 18.3 H BUN 30 H Creatinine 1.6 H Est GFR (CKD-EPI 2020) 45.21 Glucose 127 H Calcium 9.0 Total Bilirubin 1.0 AST 27 ALT 30 Alkaline Phosphatase 101 Troponin I 27 20 NT-Pro-B Natriuret Pep 4404 H Total Protein 7.8 Albumin 3.4 COVID-19 Source Nasopharynx SARS-CoV-2 (PCR) Negative Influenza Type A (PCR) Negative Influenza Type B (PCR) Negative RSV (PCR) Negative 04/22/25 04/22/25 04/22/25 14:08 14:45 16:27 WBC RBC Hgb Hct MCV MCH MCHC RDW Plt Count MPV Immature Gran % Neutrophils % Lymphocytes % Monocytes % Eosinophils % Basophils % Nucleated RBC % Absolute Neutrophils Absolute Lymphocytes Absolute Monocytes Absolute Eosinophils Absolute Basophils VBG pH 7.32 VBG pCO2 32 L VBG pO2 33 VBG HCO3 17 L VBG Total CO2 16 L VBG O2 Saturation 61 VBG Base Excess -9 L VBG Lactate 2.0 Sodium Cancelled 133 L Potassium Cancelled 3.7 Chloride Cancelled 98 Carbon Dioxide Cancelled 15.9 L Anion Gap Cancelled 19.1 H BUN Cancelled 32 H Creatinine Cancelled 1.4 H Est GFR (CKD-EPI 2020) Cancelled 53.07 Glucose Cancelled 258 H Calcium Cancelled 8.4 L Total Bilirubin AST ALT Alkaline Phosphatase Troponin I NT-Pro-B Natriuret Pep Total Protein Albumin COVID-19 Source SARS-CoV-2 (PCR) Influenza Type A (PCR) Influenza Type B (PCR) RSV (PCR) Last Vital Signs Temp 36.9 C 04/22/25 10:46 Pulse 89 04/22/25 11:12 Resp 20 04/22/25 11:50 BP 153/86 H 04/22/25 10:46 Pulse Ox 96 04/22/25 11:12 Time Spent Time spent with Patient: 55-74 minutes Time was spent: preparing to see the patient(eg.review tests), obtaining and/or reviewing separately otained hiistory, ordering medications,tests, procedures, referring, communicating with other health healthcare economics consultant, indepentently interpreting results, counseling the patient and care coordination
[2025-04-22] MEDS: DOXYCYCLINE 100 MG in Normal Saline 100 ML IVPB (17:49)
[2025-04-22] MEDS: predniSONE 20 MG TAB 40 MG PO (17:58)
[2025-04-22] MEDS: Normal Saline 1,000 ML 200 ML IV (19:24)
--- NOTE | 2025-04-22 19:49 | W.PC.ACHO ---
Registration Status: REG ER Primary Language: Preferred Language: Yakut ED Information & Data Chief Complaint SOB 04/22/25 11:19 Triage Note Pt arrives to ED c/o SOB + 04/22/25 10:33 non-productive cough which started on Tuesday. Pt states he's having severe SOB w/ exertion. Pt also endorses some chest pressure. Pt states he is not on O2 normally - 86% on RA upon arrival to ED. Placed on 2L O2 via NC in triage. Current smoker - cigars. No dx of COPD. Medical / Surgical History (Last Updated 04/22/25 @ 18:39 by Darrick Minor) CKD (chronic kidney disease) stage 3, GFR 30-59 ml/min Heart failure with reduced ejection fraction (HFrEF, <= 40%) Coronary artery disease Diabetes (Last Updated 10/18/23 @ 15:03 by Jaja Rodriguez) History of radical excision of skin lesion (~09/2023) History of coronary artery stent placement S/P triple vessel bypass Colonoscopy - MAC AAA repair (08/10/13) Most Recent Vital Signs Temperature 36.9 C 04/22/25 10:46 Temperature Source Temporal Artery Scan 04/22/25 10:46 Pulse 100 H 04/22/25 19:31 Pulse 102 H 04/22/25 19:31 Respiratory Rate 27 H 04/22/25 19:31 Respiratory Effort Normal 04/22/25 11:50 Respiratory Depth Normal 04/22/25 11:50 Respiratory Pattern Normal 04/22/25 11:50 Blood Pressure 150/72 H 04/22/25 19:31 Blood Pressure Mean 97 04/22/25 19:31 Blood Pressure Position Sitting 04/22/25 10:46 Pulse Oximetry 92 04/22/25 19:31 Oxygen Delivery Method Room Air 04/22/25 17:51 Oxygen Flow Rate 0 04/22/25 17:51 Pain Level 6 04/22/25 10:46 Allergies No Known Allergies Allergy (Verified 04/22/25 10:40) Precautions Isolation Standard precaution 04/22/25 10:41 Active Medications Generic Name Dose Route Start Last Admin Trade Name Freq PRN Reason Stop Dose Admin Albuterol/Ipratropium 3 ml 04/22/25 16:00 04/22/25 17:51 Albuterol/Ipratropium 3 Ml Upd Vial UPD 3 ml Q6H LUIS Administration Sodium Chloride 1,000 mls @ 200 mls/hr 04/22/25 15:31 04/22/25 19:24 Saline 1000ml Bag IV 04/22/25 20:30 200 mls/hr BOLUS ONE Administration Ceftriaxone Sodium/Dextrose 2 gm in 50 mls @ 100 mls/hr 04/22/25 16:00 04/22/25 17:17 Rocephin IVPB Infused Q24H LUIS Infusion IV IV Catheter Type [Right Peripheral IV Forearm] IV Catheter Gauge [Right 18 Forearm] Diet Orders Category Date Time Status Diabetes Consistent CHO/Heart Healthy [DIET] Nutrition 04/22/25 Dinner Active Diagnostics 04/22/25 04/22/25 04/22/25 Range/Units 16:27 14:45 14:08 WBC (4.4-10.8) 10^3/uL RBC (4.36-5.78) 10^6/uL Hgb (13.5-17.5) g/dL Hct (40.0-50.0) % MCV (80-95) fL MCH (27.0-33.0) pg MCHC (32.0-36.0) % RDW (11.8-14.1) % Plt Count (130-400) 10^3/uL MPV (8.0-11.0) fL Immature Gran % % Neutrophils % % Lymphocytes % % Monocytes % % Eosinophils % % Basophils % % Nucleated RBC % (0.0-0.3) % Absolute Neutrophils (1.2-6.7) 10^3/uL Absolute Lymphocytes (1.2-3.4) 10^3/uL Absolute Monocytes (0.1-0.8) 10^3/uL Absolute Eosinophils (0.0-0.7) 10^3/uL Absolute Basophils (0.0-0.2) 10^3/uL VBG pH 7.32 (7.31-7.41) VBG pCO2 32 L (41-51) mmHg VBG pO2 33 mmHg VBG HCO3 17 L (23-28) mmol/L VBG Total CO2 16 L (24-29) mmol/L VBG O2 Saturation 61 % VBG Base Excess -9 L (-2-3) mmol/L VBG Lactate 2.0 (<or=2.0) mmol/L Sodium 133 L Cancelled (136-145) mmol/L Potassium 3.7 Cancelled (3.5-5.1) mmol/L Chloride 98 Cancelled (98-107) mmol/L Carbon Dioxide 15.9 L Cancelled (21.0-32.0) mmol/L Anion Gap 19.1 H Cancelled (3-11) mmol/L BUN 32 H Cancelled (7-18) mg/dL Creatinine 1.4 H Cancelled (0.70-1.30) mg/dL Est GFR (CKD-EPI 2020) 53.07 Cancelled (mL/min/1.73m2) Glucose 258 H Cancelled (74-106) mg/dL Calcium 8.4 L Cancelled (8.5-10.1) mg/dL Total Bilirubin (0.2-1.0) mg/dL AST (15-37) U/L ALT (16-63) U/L Alkaline Phosphatase (46-116) U/L Troponin I (<or=76) ng/L NT-Pro-B Natriuret Pep (<300) pg/mL Total Protein (6.4-8.2) g/dL Albumin (3.4-5.0) g/dL COVID-19 Source SARS-CoV-2 (PCR) (Negative) Influenza Type A (PCR) (Negative) Influenza Type B (PCR) (Negative) RSV (PCR) (Negative) 04/22/25 04/22/25 04/22/25 Range/Units 12:00 11:24 11:07 WBC 18.05 H (4.4-10.8) 10^3/uL RBC 4.66 (4.36-5.78) 10^6/uL Hgb 14.2 (13.5-17.5) g/dL Hct 42.2 (40.0-50.0) % MCV 91 (80-95) fL MCH 30.5 (27.0-33.0) pg MCHC 33.6 (32.0-36.0) % RDW 15.3 H (11.8-14.1) % Plt Count 279 (130-400) 10^3/uL MPV 10.1 (8.0-11.0) fL Immature Gran % 0.4 % Neutrophils % 88.4 % Lymphocytes % 3.9 % Monocytes % 7.0 % Eosinophils % 0.1 % Basophils % 0.2 % Nucleated RBC % 0.0 (0.0-0.3) % Absolute Neutrophils 15.96 H (1.2-6.7) 10^3/uL Absolute Lymphocytes 0.70 L (1.2-3.4) 10^3/uL Absolute Monocytes 1.26 H (0.1-0.8) 10^3/uL Absolute Eosinophils 0.02 (0.0-0.7) 10^3/uL Absolute Basophils 0.04 (0.0-0.2) 10^3/uL VBG pH 7.32 (7.31-7.41) VBG pCO2 38 L (41-51) mmHg VBG pO2 24 mmHg VBG HCO3 20 L (23-28) mmol/L VBG Total CO2 18 L (24-29) mmol/L VBG O2 Saturation 38 % VBG Base Excess -7 L (-2-3) mmol/L VBG Lactate (<or=2.0) mmol/L Sodium 134 L (136-145) mmol/L Potassium 4.4 (3.5-5.1) mmol/L Chloride 96 L (98-107) mmol/L Carbon Dioxide 19.7 L (21.0-32.0) mmol/L Anion Gap 18.3 H (3-11) mmol/L BUN 30 H (7-18) mg/dL Creatinine 1.6 H (0.70-1.30) mg/dL Est GFR (CKD-EPI 2020) 45.21 (mL/min/1.73m2) Glucose 127 H (74-106) mg/dL Calcium 9.0 (8.5-10.1) mg/dL Total Bilirubin 1.0 (0.2-1.0) mg/dL AST 27 (15-37) U/L ALT 30 (16-63) U/L Alkaline Phosphatase 101 (46-116) U/L Troponin I 20 27 (<or=76) ng/L NT-Pro-B Natriuret Pep 4404 H (<300) pg/mL Total Protein 7.8 (6.4-8.2) g/dL Albumin 3.4 (3.4-5.0) g/dL COVID-19 Source Nasopharynx SARS-CoV-2 (PCR) Negative (Negative) Influenza Type A (PCR) Negative (Negative) Influenza Type B (PCR) Negative (Negative) RSV (PCR) Negative (Negative) 04/22/25 16:27 Blood Culture - Pending Blood 04/22/25 16:00 Blood Culture - Pending Blood Intake and Output - 24 Hour Total 04/22/25 10:32 thru 04/22/25 18:50 Intake Total 650 Balance 650 Weight 48.081 kg Intake: IV 650 Falls Risk Assessment History of Falls No History 04/22/25 10:46 Contributing Factors No Factors 04/22/25 10:46 Ambulatory Aids Independent 04/22/25 10:46 Tubes/Lines With any additional score 04/22/25 10:46 Gait Evaluation No gait disturbance 04/22/25 10:46 Cognition No cognitive impairment 04/22/25 10:46 Fall Total Score 20 04/22/25 10:46 Level of Risk Standard/Low Risk 04/22/25 10:46 Problems Sepsis (Acute) Pneumonia (Acute) Smoker (Acute) v v v v v v v v v Sending and/or Receiving Nurses: Please use comment section below to note any information pertinent to the patient hand-off not included above. Information / Comments: Report received from: Isabel SANDS @ [id number]
[2025-04-22 21:14] LABS: MRSA PCR Negative (Negative)
[2025-04-22] MEDS: Atorvastatin 40 MG TAB 80 MG PO (21:14)
[2025-04-22] MEDS: Insulin Aspart 300 UNITS/3 ML PEN SC (21:15)
[2025-04-23] MEDS: Insulin Aspart 300 UNITS/3 ML PEN 8 UNITS SC (00:37)
[2025-04-23 00:40] LABS: Glucose 323 mg/dL (74-106)
[2025-04-23 03:17] VITALS: PULSE 89; RESP 16; O2SAT 94
[2025-04-23] MEDS: Albuterol/Ipratropium 3 ML UPD VIAL UPD ×2 (03:17→08:47)
[2025-04-23] MEDS: DOXYCYCLINE 100 MG in Normal Saline 100 ML IVPB (04:40)
--- NOTE | 2025-04-23 07:00 | DI.US_ITS ---
APPROVED REPORT EXAM: Comprehensive 2D, Doppler, and color-flow Echocardiogram Patient Location: In-Patient Room/Bed: 216 Certified Medical Coder: Paige Faith RDCS (AE) Indications: Hypoxia, H/O HFrEF, CAD, smoker, h/o CABG Other Information Study Quality: Adequate. Technically limited study due to body habitus. Conclusion Mild concentric left ventricular hypertrophy. Normal left ventricular size. Ejection fraction is 45%. There are septal and anterior wall motion abnormalities Right ventricle is not well-visualized but does not appear enlarged Both atria are normal in size Aortic valve is mildly sclerotic and trileaflet without stenosis or regurgitation There is no additional structural or hemodynamically significant valvular disease Ascending aorta measures 3.76 cm Wall motion Left Ventricle The left ventricle is normal size. Left ventricular systolic function is mildly decreased. Mild concentric left ventricular hypertrophy. Anterior and septal wall motion abnormalities There is no ventricular septal defect visualized. LVEF is 45%. Right Ventricle Right ventricle is not well visualized. Right ventricular systolic function could not be assessed. Atria The left atrium size is normal. The right atrium size is normal. The interatrial septum is intact with no evidence for an atrial septal defect. Aortic Valve The aortic valve is mildly sclerotic Aortic valve is trileaflet. There is no aortic valvular stenosis. No aortic regurgitation is present. Mitral Valve The mitral valve is normal in structure. No evidence of mitral valve stenosis. Trace mitral regurgitation. Tricuspid Valve The tricuspid valve is normal in structure. There is no tricuspid valve stenosis. Trace tricuspid regurgitation. Pulmonic Valve The pulmonary valve is normal in structure. There is no pulmonic valvular stenosis. There is no pulmonic valvular regurgitation. Great Vessels The aortic root is normal in size. The ascending aorta is mildly dilated. Aortic arch is not well visualized. IVC is normal in size and collapses >50% with inspiration. Pericardium There is no pericardial effusion. 2D Dimensions IVSD d PLAX 1.30 cm M: 0.6-1.2 Ao Root d 3.50 cm M: 3.1 - 3.7 LVPW d PLAX 1.31 cm M: 0.6 - 1.2 Ao Asc Diam d 3.75 cm M: 2.6 - 3.4 LVID d PLAX 4.60 cm M: 4.2 - 5.8 LVDs 3.70 cm M: 2.5 - 4.0 LV EF Teichholz 39.9 % FS 19.35 % LV EDV (Teich) 96.4 mL LV ESV (Teich) 57.9 mL M-Mode TAPSE 2.37 cm (M/F) >1.7 Auto EF LV EDV A4C 112.5 mL LV EDV A2C 91.8 mL LV EDV BP 101.5 mL LV ESV A4C 68.0 mL LV ESV A2C 55.1 mL LV ESV BP 61.5 mL LVEF(%) A4C 39.6 % LVEF(%) A2C 40.0 % LVEF(%) BP 39.4 % LV SV A4C 44.5 ml LV SV A2C 36.7 ml LV SV BP 40.0 ml LV CO A4C 4.1 L/min LV CO A2C 2.7 L/min LV CO BP 3.4 L/min HR A4C 92.73 BPM HR A2C 74.54 BPM LV EDV Index (BP) LA Volume LA Length A4C 3.8 cm LA Length A2C 3.8 cm LA Area A4C s 10.86 cm2 LA Area A2C s 9.64 cm2 LA Vol A4C A-L 26.04 mL LA Vol A2C A-L 20.72 mL LA Vol Biplane A-L 23.3 mL LA Vol/BSA A4C A-L LA Vol/BSA A2C A-L LA Vol/BSA BP A-L 31.1 mL/m2 LA Vol A4C MOD 24.4 mL LA Vol A2C MOD 19.4 mL LA Vol BP MOD 21.8 mL RA Volume RA Area A4C 11.7 cm2 RA ESV A4C (A-L) 29.6mL RA Vol/BSA A4C A-L RA Length A4C 3.9 cm RA ESV A4C (MOD) 26.7mL LV Diastology MV E' medial 0.083 (>0.07 m/s) MV E Vmax 0.51 (0.4-1.3 m/s) MV E/E' MED 6.21 (<14) MV A Vmax 0.70 (0.4-1.3 m/s) MV E' lateral 0.118 (>0.1 m/s) E/A Ratio 0.7 MV E/E' LAT 4.34 (<14) MV E' Average 0.100 m/s MV E/E'(average) 5.11 Aortic Valve AoV Vmax 1.01 m/s LVOT Vmax 0.92 m/s AoV Peak Grad 4.1 mmHg LVOT Peak Grad 3.4 mmHg AoV Area (Vmax) 3.46 cm2 LVOT VTI 0.178 m AoV VTI 0.182 m LVOT Mean Grad 1.6 mmHg AoV Mean Edi. 0.65 m/s LVOT SV 67.31 mL AoV Mean Grad 2.1 mmHg LVOT Diam s 2.15 cm AoV Area (VTI) 3.70 cm2 AV Regurg Peak Gr. 4.07 mmHg Velocity Ratio 0.91 Mitral Valve MV DT 164 (160-240 msec) MV Vmax TIPS 0.69 m/s MV Mean Grad 0.7 (<2mmHg) MV VTI 0.172 m Pulmonary Valve PV Vmax 1.40 (0.5-1.5 m/s) RVOT Vmax 1.38 m/s PV Peak Grad 7.9 mmHg RVOT Peak Gr. 7.6 mmHg PV Mean Edi 0.91 m/s RVOT VTI 0.226 m PV Mean Grad 4.0 mmHg RVOT Mean Gr. 3.9 mmHg Tricuspid Valve RA Pressure 3.00 mmHg TR Vmax 2.46 m/s TV S' 0.16 m/s TR Peak Grad 24.2 mmHg RVSP (TR) 27.2 mmHg
[2025-04-23 07:27] LABS: HCT 33.8 % (40.0-50.0); HGB 11.5 g/dL (13.5-17.5); MCH 30.8 pg (27.0-33.0); MCHC 34.0 % (32.0-36.0); MCV 91 fL (80-95); MPV 10.7 fL (8.0-11.0); Platelet Count 232 10^3/uL (130-400); RBC 3.73 10^6/uL (4.36-5.78); RDW 15.0 % (11.8-14.1); RDW-SD 50.2 fL; WBC 15.54 10^3/uL (4.4-10.8)
[2025-04-23 07:31] VITALS: BP 152/77; PULSE 84; RESP 16; TEMP 36.2; O2SAT 96
[2025-04-23 07:43] LABS: Anion Gap 16.4 mmol/L (3-11); BUN 37 mg/dL (7-18); CO2 17.6 mmol/L (21.0-32.0); Calcium 8.6 mg/dL (8.5-10.1); Chloride 102 mmol/L (98-107); Glucose 234 mg/dL (74-106); Magnesium 1.9 mg/dL (1.8-2.4); Potassium 3.4 mmol/L (3.5-5.1); Sodium 136 mmol/L (136-145)
[2025-04-23 07:56] LABS: Hemoglobin A1C 6.4 % (<5.7)
--- NOTE | 2025-04-23 08:13 | INITIAL_ITS ---
Date of service: 04/23/25 Time of Service: 08:13 Care Management Initial Assmt Initial Assessment Reason for Hospitalization: Pneumonia Functional Status/Living Situation Patient Presentation: Dustin was awake and lying in bed when CM met with him. He c/o sob though some improvement since yesterday. He resides alone in [place], his son Morro lives nearby and is supportive. Tuan drives and is independant at baseline. He is planning to discharge home via private vehicle with family once medically cleared for discharge. Town of Residence: [place] Resides with: Alone Significant Other/Family: Local (Son Morro) Natural Supports: Son Morro Employment Status: Retired Instrumental Activities of Daily Living (ADLs): Independent Medications Medication Management: No Issues/Barriers identified Physical Functioning/Mobility Assistive Device: None Advance Directives Advance Directives: Do you have an Advance Directive: N , 19:31 AD On File at [facility]: N 08/09/13, 11:58 Date Asked 04/22/25 04/22/25, 10:39 AD Date Reviewed 01/17/25 01/17/25, 10:50 COLST On File at [facility] COLST Date Scanned Code Status Resuscitation Status Full Code Insurance Coverage/Financial Issues Insurance: Medicare Part A & B - [id number] Care Team Visit Care Team Role Provider Type Kishan Calhoun MD MD [facility] STAFF PHYSICIAN Lavelle Webber DO Primary Care Provider OSTEOPATHIC DOCTOR Ceci Colunga, KERRI, [facility] Other Providers TECHNOLOGY TEACHER Manish Pina RDN Other Providers TECHNOLOGY TEACHER KANNAN Dyer Emergency Provider PHYSICIANS WASTEWATER ANALYST Darrick Minor Admit Provider [facility] STAFF PHYSICIAN Attending Provider Discharge Potential Discharge Needs: PCP F/U Appt Anticipated Barriers to Discharge: None Identified Patient/Family Education Needs: Review discharge instructions, discuss Ask Me Three Transportation: Private vehicle Plan: Anticipate, Dustin will return home when ready per . He will follow up with his PCP and plan of care as prescribed and transport via private vehicle. CM continues to follow. Social Determinants of Health Screening Social Determinants of health last assessed in clinic: 04/23/25 Will the Patient Participate in the Screening?: Yes Do you worry about having a steady place to live?: yes What is your living situation today?: I have housing today, but am worried about losing it Problems where you live: no known problems In the past 12 months, have you had to go without electric, gas, oil or water in your home?: no 1. Within the past 12 months, we worried whether our food would run out before we got money to buy more.: Never true 2. Within the past 12 months, the food we bought just didn't last and we didn't have money to get more.: Never true Has lack of transportation kept you from medical appointments or from doing things needed for daily living?: yes Has anyone in your life made you feel unsafe or unsupported?: no How hard is it for you to pay for the very basics like food, housing, medical care, and heating? Would you say it is:: Not hard at all Do you want help finding or keeping work or a job?: I do not need or want help If for any reason you need help with day-to-day activities such as bathing, preparing meals, shopping, managing finances, etc., do you get the help you need?: I don’t need any help How often do you feel lonely or isolated from those around you?: Never Do you speak a language other than Malian at home?: No Does the patient want assistance with any of the above?: No Comments: lack transportation to get medical appointments Health Related Social Needs Health related social needs: housing instability, housed, with risk of homelessness (Z59.811) and transportation insecurity (Z59.82) Health related social needs details: none PFSH All Active Problems (Updated 04/22/25 @ 20:16 by NutritionixNarcisa Wish DaysDAXWordeo) Sepsis (Acute) Pneumonia (Acute) Basal cell carcinoma of skin of face (Acute) Anemia, mild (Acute) Renal insufficiency (Chronic) Smoker (Acute) Cigars Acute CHF (Acute) Diverticulosis of colon (Chronic) Abdominal pain, LLQ (Chronic) Medical History (Updated 04/22/25 @ 20:16 by NutritionixNarcisa Wish DaysDEBORA) CKD (chronic kidney disease) stage 3, GFR 30-59 ml/min Heart failure with reduced ejection fraction (HFrEF, <= 40%) Coronary artery disease Diabetes Surgical History (Updated 10/18/23 @ 15:03 by Jaja Rodriguez) History of radical excision of skin lesion (~09/2023) Right arch History of coronary artery stent placement S/P triple vessel bypass 2013. No longer required to f/u with cards per pt. Colonoscopy - MAC 11/13/13; [facility] 7 YRS [place] [facility] [place] History (Updated 05/21/24 @ 11:34 by Meaghan Moody [facility]) Smoking/Tobacco Use Status: Current every day Tobacco Type: cigars Tobacco: How many years used: 10 Quit status: has quit before Second Hand Exposure: Yes Smoking risk assessment performed?: Yes Alcohol Intake: never Drug use: Daily Substance use type: marijuana Adopted: No Caregiver/Support person: No Foster care: No Household members: none Housing: house Number of Children: 1 number of grandchildren: 5 Communication Needs: None Education Level: college Details: Associates' Degree Do you need help understanding health information?: Never current occupation: Retired Pets and animals: No Sexually active: No Do you think of yourself as: straight/heterosexual Current gender identity: male What is your relationship status?: How often do you talk on the phone with friends or family?: three or more times per week How often do you get together with friends or relatives?: once per week Do you belong to any clubs or organized social groups?: no Panel score (0-1 are the most socially isolated patients): 1 Shweta/Holiness: Episcopalian Special shweta needs: No Seatbelt use: sometimes Do you feel safe at home: Yes Additional Social history: Lives alone in [place].
[2025-04-23 08:47] VITALS: PULSE 89; RESP 24; O2SAT 93
[2025-04-23] MEDS: Insulin Aspart 300 UNITS/3 ML PEN SC ×2 (09:02→11:54)
[2025-04-23] MEDS: predniSONE 20 MG TAB 40 MG PO (09:02)
[2025-04-23] MEDS: Aspirin 81 MG CHEW PO (09:03)
[2025-04-23] MEDS: Metoprolol CR 50 MG TABCR PO (09:03)
[2025-04-23 11:26] VITALS: BP 133/80; PULSE 86; RESP 16; TEMP 36.6; O2SAT 95
--- NOTE | 2025-04-23 13:28 | W.PM.DS.N ---
Date of service: 04/23/25 Time of Service: 13:28 DS: Diagnosis Discharge Diagnosis (1) Pneumonia: Status: Acute (2) Sepsis: Status: Acute (3) Coronary artery disease: (4) Type 2 diabetes mellitus without complications: Status: Suspected (5) Smoker: Status: Acute (6) Heart failure with reduced ejection fraction (HFrEF, <= 40%): (7) CKD (chronic kidney disease) stage 3, GFR 30-59 ml/min: Discharge Plan Disposition Patient Disposition: Home Condition: Good Discharge Details Reason For Visit: Pneumonia Admit Date/Time: 04/22/25 15:46 Admit Provider: Darrick Minor Attending Provider: Darrick Minor Primary Care Provider: [facility] Course Hospital Course: Patient initially presented with signs and symptoms consistent with sepsis secondary to pneumonia. He was not hypoxic but did have a high PSI/port score based on his age, therefore decision was made for patient to be admitted overnight. He was given ceftriaxone and doxycycline in the emergency department which was continued, and ultimately transition to cefpodoxime and p.o. doxycycline. On the afternoon of discharge patient stated that he had significant improvement and felt that he was back to his baseline and felt comfortable going home continuing his p.o. Antibiotic therapy. At which time it was determined that the patient was stable for discharge home. Home Meds and New Rx's Prescriptions: New doxycycline hyclate 100 mg Capsule 100 mg PO BID Qty: 8 0RF cefpodoxime 200 mg Tablet 200 mg PO Q24H Qty: 8 0RF Continued Jardiance 10 mg tablet 10 mg PO QAM Qty: 90 3RF atorvastatin 80 mg tablet 80 mg PO QHS Qty: 90 3RF metoprolol succinate [Toprol XL] 50 mg tablet extended release 24 hr 50 mg PO DAILY Qty: 90 3RF Trulicity 0.75 mg/0.5 mL pen injector 0.75 mg subcut QWEEK Qty: 2 0RF aspirin [Children's Aspirin] 81 mg Tablet,Chewable 81 mg PO DAILY Qty: 90 0RF No Action (DME) pen needle, diabetic [Pen Needle] 31 gauge x 5/16 needle See Rx Instructions .ROUTE .MEDSUPPLY Qty: 100 3RF Rx Instructions: As directed to administer liraglutide once daily. Dispense covered brand. Discharge Instructions Stand Alone Forms: Portal Information Activity:: Activity as Tolerated Equipment/Supplies:: No Equipment Needed Diet:: As Tolerated Discharge Orders Discharge Orders: Discharge Order (Routine); Ordered 04/23/25 Ordered By: Kishan Calhoun DS: Summary Time Spent with Patient providing and/or coordinating discharge services: Greater than 30 minutes Status at Discharge Functional status at discharge: independent ambulation Overall status at discharge: patient is back to baseline Mental Status: mental status grossly normal Speech and Movement: speech and movement normal Mood: congruent mood Affect: normal affect Quality:SDOH Health Related Social Needs: Health related social needs risk of homeless transpo insecurity Health related social needs details none Health related social needs details: none Exam Narrative Exam Narrative: Well-appearing older gentleman sitting up in the bed in no acute distress, ANO x 4, heart regular rhythm, lungs good auscultation bilaterally, abdomen soft, nontender, nondistended Psych Mental Status: mental status grossly normal Speech and Movement: speech and movement normal Mood: congruent mood Affect: normal affect DS: Data Vitals/I&O Vitals and I&O: Vital Signs Temperature 97.9 F 04/23/25 11:26 Temperature Source Temporal Artery Scan 04/23/25 11:26 Pulse 86 04/23/25 11:26 Pulse 102 H 04/22/25 19:31 Respiratory Rate 16 04/23/25 11:26 Respiratory Effort Short of Breath 04/22/25 20:19 Respiratory Depth Normal 04/22/25 20:19 Respiratory Pattern Irregular 04/22/25 20:19 Blood Pressure 133/80 04/23/25 11:26 Blood Pressure Mean 97 04/23/25 11:26 Blood Pressure Position Sitting 04/22/25 10:46 Pulse Oximetry 95 04/23/25 11:26 Oxygen Delivery Method Room Air 04/23/25 11:26 Oxygen Flow Rate 0 04/23/25 11:26 Pain Level 0 04/23/25 11:26 Intake & Output 04/22/25 04/23/25 04/23/25 17:59 05:59 17:59 Intake Total 550 / 550 653.333 / 1203.333 320 / 320 Output Total 775 / 775 545 / 545 Balance 550 / 550 -121.667 / 428.333 -225 / -225 Weight 106 lb 99 lb 13.91 oz Intake: IV 550 / 550 653.333 / 1203.333 100 / 100 Oral 220 / 220 Output: Urine 775 / 775 545 / 545 Other: Urine Color Yellow Yellow Urine Appearance Clear Clear Urine Odor None Normal Comment pt voids in urinal. Data Completed and Pending Pending Labs at Discharge: 04/22/25 04/22/25 04/22/25 11:07 11:24 12:00 WBC 18.05 H RBC 4.66 Hgb 14.2 Hct 42.2 MCV 91 MCH 30.5 MCHC 33.6 RDW 15.3 H Plt Count 279 MPV 10.1 Immature Gran % 0.4 Neutrophils % 88.4 Lymphocytes % 3.9 Monocytes % 7.0 Eosinophils % 0.1 Basophils % 0.2 Nucleated RBC % 0.0 Absolute Neutrophils 15.96 H Absolute Lymphocytes 0.70 L Absolute Monocytes 1.26 H Absolute Eosinophils 0.02 Absolute Basophils 0.04 VBG pH 7.32 VBG pCO2 38 L VBG pO2 24 VBG HCO3 20 L VBG Total CO2 18 L VBG O2 Saturation 38 VBG Base Excess -7 L VBG Lactate Sodium 134 L Potassium 4.4 Chloride 96 L Carbon Dioxide 19.7 L Anion Gap 18.3 H BUN 30 H Creatinine 1.6 H Est GFR (CKD-EPI 2020) 45.21 Glucose 127 H Hemoglobin A1c Calcium 9.0 Magnesium Total Bilirubin 1.0 AST 27 ALT 30 Alkaline Phosphatase 101 Troponin I 27 20 NT-Pro-B Natriuret Pep 4404 H Total Protein 7.8 Albumin 3.4 COVID-19 Source Nasopharynx SARS-CoV-2 (PCR) Negative Influenza Type A (PCR) Negative Influenza Type B (PCR) Negative Urine Legionella Ag RSV (PCR) Negative MRSA (TEM-PCR) 04/22/25 04/22/25 04/22/25 14:08 14:45 16:27 WBC RBC Hgb Hct MCV MCH MCHC RDW Plt Count MPV Immature Gran % Neutrophils % Lymphocytes % Monocytes % Eosinophils % Basophils % Nucleated RBC % Absolute Neutrophils Absolute Lymphocytes Absolute Monocytes Absolute Eosinophils Absolute Basophils VBG pH 7.32 VBG pCO2 32 L VBG pO2 33 VBG HCO3 17 L VBG Total CO2 16 L VBG O2 Saturation 61 VBG Base Excess -9 L VBG Lactate 2.0 Sodium Cancelled 133 L Potassium Cancelled 3.7 Chloride Cancelled 98 Carbon Dioxide Cancelled 15.9 L Anion Gap Cancelled 19.1 H BUN Cancelled 32 H Creatinine Cancelled 1.4 H Est GFR (CKD-EPI 2020) Cancelled 53.07 Glucose Cancelled 258 H Hemoglobin A1c Calcium Cancelled 8.4 L Magnesium Total Bilirubin AST ALT Alkaline Phosphatase Troponin I NT-Pro-B Natriuret Pep Total Protein Albumin COVID-19 Source SARS-CoV-2 (PCR) Influenza Type A (PCR) Influenza Type B (PCR) Urine Legionella Ag RSV (PCR) MRSA (TEM-PCR) 04/22/25 04/22/25 04/23/25 19:55 20:20 00:18 WBC RBC Hgb Hct MCV MCH MCHC RDW Plt Count MPV Immature Gran % Neutrophils % Lymphocytes % Monocytes % Eosinophils % Basophils % Nucleated RBC % Absolute Neutrophils Absolute Lymphocytes Absolute Monocytes Absolute Eosinophils Absolute Basophils VBG pH VBG pCO2 VBG pO2 VBG HCO3 VBG Total CO2 VBG O2 Saturation VBG Base Excess VBG Lactate Sodium Potassium Chloride Carbon Dioxide Anion Gap BUN Creatinine Est GFR (CKD-EPI 2020) Glucose 323 H Hemoglobin A1c Calcium Magnesium Total Bilirubin AST ALT Alkaline Phosphatase Troponin I NT-Pro-B Natriuret Pep Total Protein Albumin COVID-19 Source SARS-CoV-2 (PCR) Influenza Type A (PCR) Influenza Type B (PCR) Urine Legionella Ag Pending RSV (PCR) MRSA (TEM-PCR) Negative 04/23/25 06:00 WBC 15.54 H RBC 3.73 L Hgb 11.5 L D Hct 33.8 L MCV 91 MCH 30.8 MCHC 34.0 RDW 15.0 H Plt Count 232 MPV 10.7 Immature Gran % Neutrophils % Lymphocytes % Monocytes % Eosinophils % Basophils % Nucleated RBC % Absolute Neutrophils Absolute Lymphocytes Absolute Monocytes Absolute Eosinophils Absolute Basophils VBG pH VBG pCO2 VBG pO2 VBG HCO3 VBG Total CO2 VBG O2 Saturation VBG Base Excess VBG Lactate Sodium 136 Potassium 3.4 L Chloride 102 Carbon Dioxide 17.6 L Anion Gap 16.4 H BUN 37 H Creatinine 1.6 H Est GFR (CKD-EPI 2020) 45.21 Glucose 234 H Hemoglobin A1c 6.4 H Calcium 8.6 Magnesium 1.9 Total Bilirubin AST ALT Alkaline Phosphatase Troponin I NT-Pro-B Natriuret Pep Total Protein Albumin COVID-19 Source SARS-CoV-2 (PCR) Influenza Type A (PCR) Influenza Type B (PCR) Urine Legionella Ag RSV (PCR) MRSA (TEM-PCR) Preliminary micro results at discharge 04/22/25 16:27 Blood Blood Culture - Pending 04/22/25 16:00 Blood Blood Culture - Pending [facility] All Active Problems (Updated 04/23/25 @ 13:28 by Kishan Calhoun MD) Sepsis (Acute) Pneumonia (Acute) Basal cell carcinoma of skin of face (Acute) Anemia, mild (Acute) Renal insufficiency (Chronic) Smoker (Acute) Cigars Acute CHF (Acute) Diverticulosis of colon (Chronic) Abdominal pain, LLQ (Chronic) Medical History (Updated 04/23/25 @ 13:28 by Kishan Calhoun MD) CKD (chronic kidney disease) stage 3, GFR 30-59 ml/min Heart failure with reduced ejection fraction (HFrEF, <= 40%) Coronary artery disease Diabetes Surgical History (Updated 10/18/23 @ 15:03 by Jaja Rodriguez) History of radical excision of skin lesion (~09/2023) Right arch History of coronary artery stent placement S/P triple vessel bypass 2013. No longer required to f/u with cards per pt. Colonoscopy - MAC 11/13/13; [facility] F/U 7 YRS AAA [place]08[place]10/13[place] [facility] [place] Social History (Updated 05/21/24 @ 11:34 by Meaghan Moody [facility]) Smoking/Tobacco Use Status: Current every day Tobacco Type: cigars Tobacco: How many years used: 10 Quit status: has quit before Second Hand Exposure: Yes Smoking risk assessment performed?: Yes Alcohol Intake: never Drug use: Daily Substance use type: marijuana Adopted: No Caregiver/Support person: No Foster care: No Household members: none Housing: house Number of Children: 1 number of grandchildren: 5 Communication Needs: None Education Level: college Details: Associates' Degree Do you need help understanding health information?: Never current occupation: Retired Pets and animals: No Sexually active: No Do you think of yourself as: straight/heterosexual Current gender identity: male What is your relationship status?: How often do you talk on the phone with friends or family?: three or more times per week How often do you get together with friends or relatives?: once per week Do you belong to any clubs or organized social groups?: no Panel score (0-1 are the most socially isolated patients): 1 Shweta/Restorationism: Caodaism Special shweta needs: No Seatbelt use: sometimes Do you feel safe at home: Yes Additional Social history: Lives alone in [place]. Time Spent with Patient Time Spent with Patient: <45 minutes Time was spent: preparing to see the patient(eg.review tests), obtaining and/or reviewing separately otained hiistory, ordering medications,tests, procedures, referring, communicating with other health palliative care coordinator, indepentently interpreting results, counseling the patient and care coordination
[2025-04-23 17:10] LABS: Legionella Ag Detection Urine Negative (Negative)
== END 2025-04-23 14:22 | disposition home or self-care (01) ==
LOC: ER 16:01 → MS 20:15
PROVIDERS: Admitting Provider Family Medicine; Emergency Provider Physician Assistant; PCP Family Medicine; Responsible Provider Family Medicine; Visit Provider Family Medicine
DX: A41.9 Sepsis, unspecified organism (principal); J18.9 Pneumonia, unspecified organism; I25.10 Atherosclerotic heart disease of native coronary artery without angina pectoris; I50.20 Unspecified systolic (congestive) heart failure; E11.22 Type 2 diabetes mellitus with diabetic chronic kidney disease; N18.30 Chronic kidney disease, stage 3 unspecified; F12.90 Cannabis use, unspecified, uncomplicated; R53.1 Weakness; R06.02 Shortness of breath; F64.9 Gender identity disorder, unspecified; K57.30 Diverticulosis of large intestine without perforation or abscess without bleeding; Z95.1 Presence of aortocoronary bypass graft; Z95.5 Presence of coronary angioplasty implant and graft; Z79.899 Other long term (current) drug therapy; F17.290 Nicotine dependence, other tobacco product, uncomplicated; Z79.85 Long-term (current) use of injectable non-insulin antidiabetic drugs; Z59.82 Transportation insecurity; Z59.811 Housing instability, housed, with risk of homelessness
CPT/HCPCS: 00123; 36415; 80048; 80053; 82805; 82947; 85027; 87040; 87449; 87637; 87641; 93005; 93306; 94640; 96361; 96365; 96367; 96375; 99285; 71046; 83036; 83605; 83735; 83880; 84484; 85025; 93010; 94760; 99222; 99238; G0378; J0696; J1815; J2919; J7512; J7620